=== PATIENT | male | born 1950 | race Caucasian/White ===

== ENCOUNTER 2017-12-08 17:37 | Emergency (ER) | payer OTHER ==
[~2017-12-08] VITALS: Ht 182.9 cm; Wt 83.9 kg
[2017-12-08 18:13] LABS: BASOPHILS ABSOLUTE AUTO 0.03 K/mm3 (0.00-0.23); BASOPHILS PERCENT AUTO 0 % (0-2); EOSINOPHILS ABSOLUTE AUTO 0.07 K/mm3 (0.00-0.68); EOSINOPHILS PERCENT AUTO 1 % (0-6); Hematocrit 42.9 % (37.0-53.0); Hemoglobin 14.4 g/dL (13.5-17.5); IMMATURE GRAN ABSOLUTE AUTO 0.04 K/mm3 (0.00-0.10); IMMATURE GRAN PERCENT AUTO 0 % (0-1); LYMPHOCYTES ABSOLUTE AUTO 1.94 K/mm3 (0.84-5.20); LYMPHOCYTES PERCENT AUTO 16 % (21-46); MONOCYTES ABSOLUTE AUTO 0.96 K/mm3 (0.16-1.47); MONOCYTES PERCENT AUTO 8 % (4-13); Mean Corpuscular HGB 30.3 pg (26.0-34.0); Mean Corpuscular HGB Conc 33.6 g/dL (31.5-36.5); Mean Corpuscular Volume 90 fL (80-100); Mean Platelet Volume 10.5 fL (9.1-12.4); NEUTROPHILS ABSOLUTE AUTO 9.39 K/mm3 (1.96-9.15); NEUTROPHILS PERCENT AUTO 76 % (41-73); Platelet Count 242 K/mm3 (150-400); RDW Coefficient Variation 12.4 % (11.7-14.2); RDW Standard Deviation 41.3 fL (35.1-46.3); Red Blood Cell Count 4.75 M/mm3 (4.30-5.90); White Blood Cell Count 12.43 K/mm3 (4.00-11.30)
[2017-12-08 18:33] LABS: Alanine Aminotransfer (ALT/SGP 21 U/L (12-78); Albumin, Blood 3.9 g/dL (3.4-5.0); Albumin/Globulin Ratio 1.1 (0.8-1.8); Alk Phos 81 U/L (50-136); Anion Gap 8 mmol/L (6-16); Aspartate Aminotrans (AST/SGOT 24 U/L (12-37); Bilirubin, Total 0.6 mg/dL (0.1-1.0); Blood Urea Nitrogen 11 mg/dL (8-24); Bun/Creatinine Ratio 20.9 (12.0-20.0); CO2, Blood 28 mmol/L (21-32); Chloride, Blood 93 mmol/L (98-108); Creatinine, Blood 0.53 mg/dL (0.60-1.20); Globulin, Blood 3.4 g/dL (2.2-4.0); Glomerular Filtration Rate >60 (60-); Glucose, Blood 91 mg/dL (70-99); Potassium, Blood 3.7 mmol/L (3.5-5.5); Sodium, Blood 129 mmol/L (136-145); Total Protein, Blood 7.3 g/dL (6.4-8.2); Troponin I <0.015 ng/mL (0.000-0.040)
[2017-12-08] MEDS ORDERED: HYDCHL12.5 PO (19:57)
[2017-12-08] MEDS ORDERED: LISI5 PO (19:58)
[2017-12-08] MEDS ORDERED: SIMV40 PO (19:58)
[2017-12-08] MEDS ORDERED: ATEN25 PO (19:58)
[2017-12-08] MEDS ORDERED: TAMS.4ER PO (19:59)
[2017-12-08] MEDS ORDERED: TRAZ50 PO (19:59)
[2017-12-08] MEDS ORDERED: Hydrocodone-Ap1 EA20 PO (20:00)
[2017-12-08] MEDS ORDERED: ALBU90OI INH (20:01)
[2017-12-08] MEDS ORDERED: ASPI81CH PO (20:02)
[2017-12-08] MEDS ORDERED: Hair, Skin & N1 EACH PO (20:02)
[2017-12-08] MEDS ORDERED: ERGO400 PO (20:02)
[2017-12-08] MEDS ORDERED: TIOT18 INH (20:02)
[2017-12-08] MEDS ORDERED: Augmentin 875-1 EACH PO (21:31)
[2017-12-08] MEDS ORDERED: Prednisone20 MG PO (21:31)
== END 2017-12-08 21:45 | disposition home or self-care (01) ==
LOC: ER 17:37
PROVIDERS: Emergency Medicine
DX: J44.1 Chronic obstructive pulmonary disease with (acute) exacerbation (principal); K04.7 Periapical abscess without sinus; F17.200 Nicotine dependence, unspecified, uncomplicated
CPT/HCPCS: 36415; 71046; 80053; 83880; 84484; 85025; 93005; 93010; 94640; 96365; 96375; 99284; J2930; J3475

== ENCOUNTER 2019-06-04 09:22 | Inpatient (IN) | payer OTHER, MEDICARE ==
[~2019-06-04] VITALS: Ht 182.9 cm; Wt 81.7 kg
[~2019-06-04 09:22] MED LIST: ACET325 PO; ALBU2.5V5 NEB; ALBU90OI INH; ASPI325 PO; ATEN25 PO; AZIT250 PO; Augmentin 875-1 EACH PO; BISA10S PR; BUDE6HFA INH; DILT60 PO; DOCU100 PO; ERGO400 PO; Florastor250 MG PO; HYDCHL12.5 PO; Hair, Skin & N1 EACH PO; Hydrocodone-Ap1 EA20 PO; LISI5 PO; MIRALAX17 GM PO; MIRT30 PO; ONDA4ODT PO; PRED20 PO; Prednisone20 MG PO; SIMV40 PO; TAMS.4ER PO; TIOT18 INH; TRAZ50 PO; XARELTO15 MG PO
[2019-06-04 09:42] LABS: BASOPHILS ABSOLUTE AUTO 0.05 K/mm3 (0.00-0.23); BASOPHILS PERCENT AUTO 1 % (0-2); EOSINOPHILS ABSOLUTE AUTO 0.18 K/mm3 (0.00-0.68); EOSINOPHILS PERCENT AUTO 3 % (0-6); Hematocrit 29.1 % (37.0-53.0); Hemoglobin 9.1 g/dL (13.5-17.5); IMMATURE GRAN ABSOLUTE AUTO 0.01 K/mm3 (0.00-0.10); IMMATURE GRAN PERCENT AUTO 0 % (0-1); LYMPHOCYTES ABSOLUTE AUTO 1.52 K/mm3 (0.84-5.20); LYMPHOCYTES PERCENT AUTO 23 % (21-46); MONOCYTES ABSOLUTE AUTO 0.72 K/mm3 (0.16-1.47); MONOCYTES PERCENT AUTO 11 % (4-13); Mean Corpuscular HGB 30.5 pg (26.0-34.0); Mean Corpuscular HGB Conc 31.3 g/dL (31.5-36.5); Mean Corpuscular Volume 98 fL (80-100); Mean Platelet Volume 10.2 fL (9.1-12.4); NEUTROPHILS ABSOLUTE AUTO 4.11 K/mm3 (1.96-9.15); NEUTROPHILS PERCENT AUTO 62 % (41-73); Platelet Count 336 K/mm3 (150-400); RDW Coefficient Variation 13.9 % (11.7-14.2); RDW Standard Deviation 49.4 fL (35.1-46.3); Red Blood Cell Count 2.98 M/mm3 (4.30-5.90); White Blood Cell Count 6.59 K/mm3 (4.00-11.30)
[2019-06-04] MEDS ORDERED: LACT PO (09:54)
[2019-06-04] MEDS ORDERED: SERT25 PO (09:56)
[2019-06-04 09:59] LABS: Alanine Aminotransfer (ALT/SGP 23 U/L (12-78); Albumin, Blood 3.8 g/dL (3.4-5.0); Albumin/Globulin Ratio 1.2 (0.8-1.8); Alk Phos 85 U/L (50-136); Anion Gap 5 mmol/L (6-16); Aspartate Aminotrans (AST/SGOT 21 U/L (12-37); Bilirubin, Total 0.4 mg/dL (0.1-1.0); Blood Urea Nitrogen 7 mg/dL (8-24); Bun/Creatinine Ratio 9.7 (12.0-20.0); CO2, Blood 35 mmol/L (21-32); Calcium, Blood 9.1 mg/dL (8.5-10.1); Chloride, Blood 99 mmol/L (98-108); Creatinine, Blood 0.73 mg/dL (0.60-1.20); Globulin, Blood 3.1 g/dL (2.2-4.0); Glomerular Filtration Rate >60 (60-); Glucose, Blood 74 mg/dL (70-99); Potassium, Blood 3.3 mmol/L (3.5-5.5); Sodium, Blood 139 mmol/L (136-145); Total Protein, Blood 6.9 g/dL (6.4-8.2)
--- NOTE | 2019-06-04 12:00 | NUR ---
PT ARRIVED TO ROOM 338 FROM ER VIA W/C. PT IS AMBULATORY AND INDEPENDENT WITH ADL'S IN ROOM. DENIES PAIN, HE IS SOB WITH EXERTION AND RESP IS AT BEDSIDE AT THIS TIME FOR TREATMENT. VITAL SIGNS OBTAINED AND PT ORIENTED TO ROOM AND CALL SYSTEM. CALL GUTIERREZ IN REACH. WILL MONITOR
[2019-06-04 15:51] LABS: Hematocrit 27.8 % (37.0-53.0); Hemoglobin 8.8 g/dL (13.5-17.5)
[2019-06-04 16:02] LABS: International Normalized Ratio 1.05; Prothrombin Time Results 11.1 Sec (9.7-11.5)
--- NOTE | 2019-06-05 04:51 | NUR ---
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
[2019-06-05 05:27] LABS: Hematocrit 24.8 % (37.0-53.0); Hemoglobin 7.8 g/dL (13.5-17.5)
[2019-06-05 17:27] LABS: Hematocrit 26.7 % (37.0-53.0); Hemoglobin 8.2 g/dL (13.5-17.5)
--- NOTE | 2019-06-05 18:31 | NUR ---
PT H2O/CHIPS AT 0700 THIS AM, NPO AT 1430 FOR PROCEDURE THIS EVENING WITH DR RUIZ. NO REPORTS OF PAIN/DISCOMFORT OR DARK STOOLS. NO ACUTE CHANGES NOTED THIS SHIFT, WILL CONTINUE TO MONITOR AND REPORT TO ONCOMING RN
--- NOTE | 2019-06-05 19:39 | NUR ---
TO ENDOSCOPY PER CART.
--- NOTE | 2019-06-05 19:58 | NUR ---
06/05/191957 Genesis Pedersen DR HERE TO PROVIDE ANESTHESIA CARE FOR THE PATIENT, PLEASE SEE DETAILED RECORD. History, Chart, Medications and Allergies reviewed before start of procedure. Patient confirms NPO status and agrees with scheduled surgery. MONITOR INTACT WITH CONTINUOUS PULSE OXIMETRY AND INTERMITTENT BP. O2 VIA N/C INTACT THROUGHOUT SEDATION/PROCEDURE & POM AT 10 L. Bite Block Placed.
--- NOTE | 2019-06-05 20:41 | NUR ---
CALL BACK TO NORMA ADAM RN, WILL GIVE BEDSIDE REPORT.
--- NOTE | 2019-06-05 22:15 | NUR ---
2049 PT RETURNED TO ROOM FROM ENDOSCOPY, ALERT AND ORIENTED X 4, DENIES PAIN, NAUSEA, PT GAVE VERBAL CONSENT TO DISCUSS CARE WITH DAUGHTER LINDA DALY TO THIS NURSE, UPDATE PROVIDED. 2199 PT ATE TWO CONTAINERS OF TAPIOCA PUDDING WITHOUT ISSUE, FEELS OK.
--- NOTE | 2019-06-06 04:29 | NUR ---
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
[2019-06-06 05:35] LABS: Hematocrit 25.9 % (37.0-53.0); Hemoglobin 8.3 g/dL (13.5-17.5); Mean Platelet Volume 10.1 fL (9.1-12.4); Platelet Count 337 K/mm3 (150-400); RDW Coefficient Variation 13.4 % (11.7-14.2); RDW Standard Deviation 46.5 fL (35.1-46.3); Red Blood Cell Count 2.77 M/mm3 (4.30-5.90); White Blood Cell Count 6.07 K/mm3 (4.00-11.30)
[2019-06-06 05:36] LABS: Mean Corpuscular Volume 94 fL (80-100)
[2019-06-06 06:05] LABS: Anion Gap 5 mmol/L (6-16); Blood Urea Nitrogen 6 mg/dL (8-24); Bun/Creatinine Ratio 8.7 (12.0-20.0); CO2, Blood 35 mmol/L (21-32); Calcium, Blood 8.8 mg/dL (8.5-10.1); Chloride, Blood 101 mmol/L (98-108); Creatinine, Blood 0.69 mg/dL (0.60-1.20); Glomerular Filtration Rate >60 (60-); Glucose, Blood 74 mg/dL (70-99); Potassium, Blood 3.4 mmol/L (3.5-5.5); Sodium, Blood 141 mmol/L (136-145)
[2019-06-06] MEDS ORDERED: ASPI81CH PO (10:02)
[2019-06-06] MEDS ORDERED: PANT40 PO (10:05)
--- NOTE | 2019-06-06 12:50 | NUR ---
DISCHARGE PATIENT DISCHARGED AT 1215 TODAY. IV REMOVED, ALL BELONGINGS SENT WITH PATIENT. DISCHARGE PACKET GIVEN TO PATIENT, NEW PROTONIX PRESCRIPTION EXPLAINED TO PT. PATIENT VERBALIZED UNDERSTANDING AND SIGNED DC FORM.
== END 2019-06-06 12:13 | disposition home or self-care (01) | DRG 378 ==
LOC: ER 09:22 → MEDS 11:41 → ENPENDDIS 06-06 10:35 → MEDS 06-06 12:13
PROVIDERS: Emergency Medicine; Internal Medicine; Internal Medicine Gastroenterology; Nurse Practitioner Acute Care; ADMIT Internal Medicine
PROC: 0DJ08ZZ Inspection of Upper Intestinal Tract, Via Natural or Artificial Opening Endoscopic (ICD-10-PCS; principal; 2019-06-05 19:45)
DX: K25.4 Chronic or unspecified gastric ulcer with hemorrhage (principal); D62 Acute posthemorrhagic anemia; J96.11 Chronic respiratory failure with hypoxia; G47.33 Obstructive sleep apnea (adult) (pediatric); Z79.01 Long term (current) use of anticoagulants; J44.9 Chronic obstructive pulmonary disease, unspecified; I11.0 Hypertensive heart disease with heart failure; I50.9 Heart failure, unspecified; I89.0 Lymphedema, not elsewhere classified; I48.0 Paroxysmal atrial fibrillation; N40.0 Benign prostatic hyperplasia without lower urinary tract symptoms; Z99.81 Dependence on supplemental oxygen; F17.210 Nicotine dependence, cigarettes, uncomplicated
CPT/HCPCS: 36415; 80048; 80053; 83735; 84132; 85014; 85018; 85025; 85027; 85610; 86850; 86900; 86901; 88305; 88342; 93005; 93010; 94640; 94760; 96374; 99285-25; C9113; J2704; J7120

== ENCOUNTER 2021-06-22 08:20 | Day surgery (SDC) | payer OTHER ==
[~2021-06-22 08:20] MED LIST changes: +ASPI81CH PO; +Atarax10 MG PO; +HYDR10 PO; +IPRAT-ALBUT 0.5-3 ML IH; +LACT PO; +LISI5; +PANT40 PO; +SERT25 PO; +ZOCOR20 MG
[2021-06-22] MEDS ORDERED: ELIQUIS2.5 MG PO (09:14)
--- NOTE | 2021-06-22 09:42 | NUR ---
PT TOLERATES LINQ IMPLANT WITH NO DIFFICULTIES. STERILE TECHNIQUE USED TO PLACE DEVICE INTO 4TH INTERCOSTAL SPACE BY PROVIDER. DISCHARGE INSTRUCTIONS PROVIDED WITH FOLLOW UP APT AND WOUND CARE INSTRUCTIONS.
--- NOTE | 2021-06-22 09:59 | NUR ---
NO ACUTE DISTRESS NOTED AT TIME OF DISCHARGE. TAKEN OUT TO PRIVATE VEHICLE VIA W/C. ENCOURAGE TO FOLLOW UP SCHEDULED.
== END 2021-06-22 23:12 | disposition home or self-care (01) ==
LOC: MHTC 08:20
PROC: 0JH602Z Insertion of Monitoring Device into Chest Subcutaneous Tissue and Fascia, Open Approach (ICD-10-PCS; principal; 2021-06-22)
DX: R55 Syncope and collapse (principal); I48.0 Paroxysmal atrial fibrillation; I10 Essential (primary) hypertension; J44.9 Chronic obstructive pulmonary disease, unspecified; E78.5 Hyperlipidemia, unspecified; Z79.899 Other long term (current) drug therapy; Z79.51 Long term (current) use of inhaled steroids
CPT/HCPCS: 33285; C1764

== ENCOUNTER 2022-01-04 12:49 | Day surgery (SDC) | payer OTHER ==
[~2022-01-04] VITALS: Ht 182.9 cm; Wt 83.4 kg
[~2022-01-04 12:49] MED LIST changes: +ELIQUIS2.5 MG PO
--- NOTE | 2022-01-04 13:15 | NUR ---
01/04/22 1315 Shayy Bey CALL LIGHT WITHIN REACH. TETRACAINE AT 1306 [facility] 1301
== END 2022-01-04 14:30 | disposition home or self-care (01) ==
LOC: ORSCSDS 12:49
PROVIDERS: Ophthalmology
PROC: 08RK3JZ Replacement of Left Lens with Synthetic Substitute, Percutaneous Approach (ICD-10-PCS; principal; 2022-01-04 14:00)
DX: H25.13 Age-related nuclear cataract, bilateral (principal); H21.81 Floppy iris syndrome; F41.9 Anxiety disorder, unspecified; J44.9 Chronic obstructive pulmonary disease, unspecified; I10 Essential (primary) hypertension; E78.5 Hyperlipidemia, unspecified; G47.33 Obstructive sleep apnea (adult) (pediatric); I63.9 Cerebral infarction, unspecified; Z87.891 Personal history of nicotine dependence; Z79.01 Long term (current) use of anticoagulants; Z79.899 Other long term (current) drug therapy
CPT/HCPCS: J2001; J2250; J3010; J3301; J7040; V2632

== ENCOUNTER 2022-01-23 12:19 | Day surgery (SDC) | payer OTHER ==
[~2022-01-23] VITALS: Ht 182.9 cm; Wt 83.4 kg
== END 2022-01-23 15:03 | disposition home or self-care (01) ==
LOC: ORSCSDS 12:19
PROVIDERS: Ophthalmology
PROC: 08RJ3JZ Replacement of Right Lens with Synthetic Substitute, Percutaneous Approach (ICD-10-PCS; principal; 2022-01-23 14:00)
DX: H25.11 Age-related nuclear cataract, right eye (principal); H21.81 Floppy iris syndrome; Z87.891 Personal history of nicotine dependence; J44.9 Chronic obstructive pulmonary disease, unspecified; I10 Essential (primary) hypertension; E78.5 Hyperlipidemia, unspecified; G47.33 Obstructive sleep apnea (adult) (pediatric); I48.0 Paroxysmal atrial fibrillation; Z79.01 Long term (current) use of anticoagulants; Z79.899 Other long term (current) drug therapy
CPT/HCPCS: J2001; J2250; J3010; J3301; J7040; V2632

== ENCOUNTER 2024-05-30 19:05 | Inpatient (IN) | payer OTHER ==
[~2024-05-30] VITALS: Ht 182.9 cm; Wt 94.5 kg
[~2024-05-30 19:05] MED LIST changes: -HYDCHL12.5 PO; +HYDCHL25 PO; -SERT25 PO; +SERT50 PO; -ZOCOR20 MG; +ZOCOR20 MG PO
[2024-05-30 19:35] LABS: BASOPHILS ABSOLUTE AUTO 0.03 K/mm3 (0.00-0.23); BASOPHILS PERCENT AUTO 0 % (0-2); EOSINOPHILS ABSOLUTE AUTO 0.27 K/mm3 (0.00-0.68); EOSINOPHILS PERCENT AUTO 2 % (0-6); Hematocrit 41.3 % (37.0-53.0); IMMATURE GRAN ABSOLUTE AUTO 0.05 K/mm3 (0.00-0.10); IMMATURE GRAN PERCENT AUTO 0 % (0-1); LYMPHOCYTES ABSOLUTE AUTO 3.12 K/mm3 (0.84-5.20); LYMPHOCYTES PERCENT AUTO 24 % (21-46); MONOCYTES ABSOLUTE AUTO 0.98 K/mm3 (0.16-1.47); MONOCYTES PERCENT AUTO 8 % (4-13); Mean Corpuscular HGB Conc 31.5 g/dL (31.5-36.5); Mean Corpuscular Volume 92 fL (80-100); Mean Platelet Volume 9.9 fL (9.1-12.4); NEUTROPHILS ABSOLUTE AUTO 8.68 K/mm3 (1.96-9.15); NEUTROPHILS PERCENT AUTO 66 % (41-73); Platelet Count 346 K/mm3 (150-400); RDW Coefficient Variation 12.2 % (11.7-14.2); RDW Standard Deviation 41.4 fL (35.1-46.3); Red Blood Cell Count 4.49 M/mm3 (4.30-5.90); White Blood Cell Count 13.13 K/mm3 (4.00-11.30)
[2024-05-30] MEDS ORDERED: MethylPREDNISolone Sod Succ 125 MG Vial IV ONE (19:35)
[2024-05-30] MEDS ORDERED: Ipratropium Bromide INH 0.02% 0.5 mg/2.5ML Vial INH SCH (19:40)
[2024-05-30] MEDS ORDERED: Diltiazem HCl 5 MG / ML 5ML Vial IV ONE ×2 (19:40→22:00)
[2024-05-30] MEDS ORDERED: Albuterol 2.5 MG/3 ML VIAL INH SCH (19:40)
[2024-05-30 19:50] LABS: PCO2 Venous 71.2 mmHg (38-42); pH Blood Venous 7.42 (7.34-7.37)
[2024-05-30 19:51] LABS: Bicarbonate Venous 40.7 mmol/L (24.0-30.0)
[2024-05-30 20:01] LABS: Alanine Aminotransfer (ALT/SGP 34 U/L (12-78); Albumin, Blood 3.2 g/dL (3.4-5.0); Albumin/Globulin Ratio 0.9 (0.8-1.8); Alk Phos 91 U/L (50-136); Anion Gap 7 mmol/L (3-11); Aspartate Aminotrans (AST/SGOT 24 U/L (12-37); Bilirubin, Total 0.2 mg/dL (0.1-1.0); Blood Urea Nitrogen 24 mg/dL (8-24); Bun/Creatinine Ratio 30.8 (12.0-20.0); CO2, Blood 43 mmol/L (21-32); Chloride, Blood 92 mmol/L (98-108); Creatinine, Blood 0.78 mg/dL (0.60-1.20); Globulin, Blood 3.6 g/dL (2.2-4.0); Glomerular Filtration Rate 95 (60-); Glucose, Blood 107 mg/dL (70-99); Potassium, Blood 3.5 mmol/L (3.5-5.5); Sodium, Blood 138 mmol/L (136-145); Total Protein, Blood 6.8 g/dL (6.4-8.2)
[2024-05-30 20:19] LABS: Free Thyroxine 0.93 ng/dL (0.70-1.60); Magnesium, Blood 2.2 mg/dL (1.6-2.4)
[2024-05-30 20:21] LABS: Thyroid Stimulating Hormone 4.53 uIU/mL (0.360-4.800)
[2024-05-30 20:31] LABS: Influenza A, PCR NEGATIVE (NEGATIVE); Influenza B, PCR NEGATIVE (NEGATIVE); Resp Syncytial Virus, PCR NEGATIVE (NEGATIVE); SARS-Cov-2 (COVID-19) PCR, MMC NEGATIVE (NEGATIVE)
[2024-05-30] MEDS ORDERED: levalbuterol HCL 1.25 MG/3 ML VIAL INH ONE ×3 (22:00→22:35)
[2024-05-30 22:21] LABS: PCO2 Venous 62.8 mmHg (38-42); pH Blood Venous 7.44 (7.34-7.37)
[2024-05-30] MEDS ORDERED: Azithromycin 500 MG in NS 250 ML IV ONE (23:15)
[2024-05-31] MEDS ORDERED: FLU VACC TS2024-25(6MOS UP)/PF 45 MCG/0.5 ML SYRINGE IM SCH (00:25)
[2024-05-31] MEDS ORDERED: Ipratropium/Albuterol SulF 2.5-0.5MG/3 ML Amp INH PRN (00:25)
[2024-05-31] MEDS ORDERED: Ondansetron HCl 2 MG / ML 2ML Vial IV PRN (00:25)
[2024-05-31] MEDS ORDERED: Potassium Chl 20MEQ/Water100ML 100 ML IV SCH (00:40)
[2024-05-31] MEDS ORDERED: NS 1,000 ML IV SCH (01:35)
[2024-05-31 03:00] VITALS: BP 96/68
[2024-05-31] MEDS ORDERED: MethylPREDNISolone Sod Succ 125 MG Vial IV SCH (06:00)
[2024-05-31 06:07] LABS: BASOPHILS ABSOLUTE AUTO 0.01 K/mm3 (0.00-0.23); BASOPHILS PERCENT AUTO 0 % (0-2); EOSINOPHILS PERCENT AUTO 0 % (0-6); Hematocrit 36.7 % (37.0-53.0); Hemoglobin 11.6 g/dL (13.5-17.5); IMMATURE GRAN ABSOLUTE AUTO 0.09 K/mm3 (0.00-0.10); IMMATURE GRAN PERCENT AUTO 1 % (0-1); LYMPHOCYTES ABSOLUTE AUTO 0.68 K/mm3 (0.84-5.20); LYMPHOCYTES PERCENT AUTO 6 % (21-46); MONOCYTES ABSOLUTE AUTO 0.07 K/mm3 (0.16-1.47); MONOCYTES PERCENT AUTO 1 % (4-13); Mean Corpuscular HGB 28.7 pg (26.0-34.0); Mean Corpuscular HGB Conc 31.6 g/dL (31.5-36.5); Mean Corpuscular Volume 91 fL (80-100); Mean Platelet Volume 9.7 fL (9.1-12.4); NEUTROPHILS ABSOLUTE AUTO 9.71 K/mm3 (1.96-9.15); NEUTROPHILS PERCENT AUTO 92 % (41-73); Platelet Count 290 K/mm3 (150-400); RDW Coefficient Variation 12.3 % (11.7-14.2); RDW Standard Deviation 40.9 fL (35.1-46.3); Red Blood Cell Count 4.04 M/mm3 (4.30-5.90); White Blood Cell Count 10.56 K/mm3 (4.00-11.30)
[2024-05-31 06:28] LABS: Albumin, Blood 2.9 g/dL (3.4-5.0); Bilirubin, Total 0.3 mg/dL (0.1-1.0); Bun/Creatinine Ratio 34.3 (12.0-20.0); Calcium, Blood 8.7 mg/dL (8.5-10.1); Creatinine, Blood 0.67 mg/dL (0.60-1.20); Potassium, Blood 4.6 mmol/L (3.5-5.5); Total Protein, Blood 5.9 g/dL (6.4-8.2)
[2024-05-31] MEDS ORDERED: Albuterol 2.5 MG/3 ML VIAL INH PRN (06:40)
[2024-05-31] MEDS ORDERED: Mometasone/Formoterol MDI 200/5 mcg 13 GM INH SCH (07:15)
[2024-05-31] MEDS ORDERED: Tiotropium Bromide 2.5 MCG/ACT MIST INHAL (10 ACT/4 GM) INH SCH (07:20)
[2024-05-31 07:29] VITALS: BP 101/69
[2024-05-31] MEDS ORDERED: Polyethylene Glycol 3350 17 gm PO PRN (08:00)
[2024-05-31] MEDS ORDERED: Acetaminophen 500 MG Tab PO PRN (08:05)
[2024-05-31] MEDS ORDERED: Metoprolol Succinate 25 MG TABCR PO ONE ×2 (08:25→15:00)
[2024-05-31] MEDS ORDERED: Lactobacil 2-S.Thermo-Bifido 1 1 Cap PO SCH (09:00)
[2024-05-31] MEDS ORDERED: Sertraline HCl 50 MG Tab PO SCH (09:00)
[2024-05-31] MEDS ORDERED: Enoxaparin 40 MG/0.4 ML SYR SC SCH (09:00)
[2024-05-31] MEDS ORDERED: HydroCHLOROthiazide 25 mg Tab PO SCH (09:00)
[2024-05-31] MEDS ORDERED: Apixaban 5 MG Tab PO SCH (09:00)
[2024-05-31] MEDS ORDERED: Tamsulosin HCl 0.4 MG Cap PO SCH (09:00)
[2024-05-31 11:09] VITALS: BP 118/84
[2024-05-31 15:24] VITALS: BP 104/67
--- NOTE | 2024-05-31 17:42 | NUR ---
SHIFT SUMMARY: PT ALERT AND ORIENTED X4, ABLE TO FOLLOW COMMANDS AND MAKE NEEDS KNOWN. STRENGTH EQUAL BILATERALLY. BP STABLE. HR REMAINS AFIB 90'S-110'S. AFEBRILE. SPO2 >94% ON 3L NC. LUNG SOUNDS COARSE, WITH NON PRODUCTIVE COUGH. PT STATES IMPROVMENT FROM ADMISSION. PULSES STRONG AND EQUAL THROUGHOUT. ABD SOFT NON TENDER, BOWEL SOUNDS +. DILT REMAINS ON STANDBY. PT ABLE TO TRANSFER WITH ONE PERSON ASSIST. ABLE TO USE URINAL AT BEDSIDE. CURRENTLY SITTING IN RECLINER EATING DINNER. CALL LIGHT IN REACH, WILL REPORT TO ONCOMING RN.
[2024-05-31 20:08] VITALS: BP 101/72
[2024-05-31] MEDS ORDERED: Azithromycin 500 MG in NS 250 ML IV SCH (21:00)
[2024-05-31] MEDS ORDERED: Mirtazapine 30 MG Tab PO SCH (21:00)
[2024-05-31] MEDS ORDERED: Docusate Sodium/Senna 1 Tab PO SCH (21:00)
[2024-06-01] VITALS (13 sets, daily range): BP systolic 11–140; BP diastolic 52–114
--- NOTE | 2024-06-01 06:19 | NUR ---
PT REMAINS STABLE THROUGHOUT THE SHIFT. VITAL SIGNS REMAIN WNL. PT DOES HAVE EXERTIONAL TACHYCARDIA AND DYSPNEA BUT RECOVERS QUICKLY AT REST. PT 1 ASSIST FROM CHAIR TO BED W/O PROBLEM. PT TOLERATING IV ABX. PT AOX4, USES CALL LIGHT APPROPRIATELY. PT DIMINISHED LUNG SOUNDS THROUGHOUT UNCHANGED FROM BEGINNING OF SHIFT. PT HR DOES REMAIN IN AFIB IN THE 90s-100s. NO C/O INCREASED SOB AT REST, NO C/O OF CHEST PAIN THROUGHOUT THE SHIFT.
--- NOTE | 2024-06-01 08:15 | NUR ---
INITIAL ASSESSMENT: Patient is resting with his eyes closed on his right side. He wakes easily with verbal stimuli. He is oriented x4. He reports 3/10 lower back pain, he states this is chronic and he takes hydrocodone for this at home. He is in A-Fib in the 90s at rest and his heart rate increases with activity into the 140s. LS DIM T/O, he is on his baseline oxygen requirements at 3L via NC. He is slightly tachypnec at rest he is able to get out 3-4 words at a time. BT+. Patient is able to use the urinal to void. PPP. He states he uses a motorized wheelchair at home for activity due to WOB. VSS. AM meds given with a sip of water. He denies other needs at this time. Call light in reach.
[2024-06-01] MEDS ORDERED: Metoprolol Succinate 25 MG TABCR PO SCH (09:00)
[2024-06-01] MEDS ORDERED: Digoxin 0.25 MG Tab PO ONE ×2 (13:25→20:00)
[2024-06-01] MEDS ORDERED: Furosemide 10 MG / ML 2ML Vial IV STA (14:46)
--- NOTE | 2024-06-01 15:15 | NUR ---
Update: This RN was called to the room for patients HR increasing 160s-180s. The patient was very SOB and tachypnec after having a coughing episode. His LS were very diminished. He just had a breathing TX, he states this did not help. Oxygen satruations remained in the high 80s. Call placed to MD, see new orders.
--- NOTE | 2024-06-01 18:31 | NUR ---
Summary: Patient has been alert and oriented x4, T/O the shift. He has minimal C/O pain in his lower back. He has been in A-Fib for the majority of the shift his heart rate increased in the afternoon, he was given Metoprolol this am, dig loaded this afternoon Cardizem gtt was restarted briefly around 1500 and ran for about an hour and a half, his heart rate started to sustain in the 80s-90s and MAP was at 60 so the drip was stopped. LS DIM T/O, his saturations were stable on his home dose of oxygen 3l, he was given a dose of Lasix and a chest X-Ray after a coughing SOB episode. BT+, he has not had a BM this shift. he has been voiding in the urinal. No other acute changes this shift, will report to oncoming RN.
[2024-06-02 00:10] VITALS: BP 110/76
[2024-06-02 04:16] LABS: BASOPHILS ABSOLUTE AUTO 0.02 K/mm3 (0.00-0.23); BASOPHILS PERCENT AUTO 0 % (0-2); EOSINOPHILS PERCENT AUTO 0 % (0-6); Hematocrit 37.6 % (37.0-53.0); Hemoglobin 11.9 g/dL (13.5-17.5); IMMATURE GRAN ABSOLUTE AUTO 0.08 K/mm3 (0.00-0.10); IMMATURE GRAN PERCENT AUTO 1 % (0-1); LYMPHOCYTES ABSOLUTE AUTO 0.58 K/mm3 (0.84-5.20); LYMPHOCYTES PERCENT AUTO 3 % (21-46); MONOCYTES ABSOLUTE AUTO 0.32 K/mm3 (0.16-1.47); MONOCYTES PERCENT AUTO 2 % (4-13); Mean Corpuscular HGB Conc 31.6 g/dL (31.5-36.5); Mean Corpuscular Volume 92 fL (80-100); Mean Platelet Volume 10.1 fL (9.1-12.4); NEUTROPHILS ABSOLUTE AUTO 15.89 K/mm3 (1.96-9.15); NEUTROPHILS PERCENT AUTO 94 % (41-73); Platelet Count 335 K/mm3 (150-400); RDW Coefficient Variation 12.9 % (11.7-14.2); RDW Standard Deviation 42.8 fL (35.1-46.3); White Blood Cell Count 16.89 K/mm3 (4.00-11.30)
[2024-06-02 04:31] VITALS: BP 111/73
[2024-06-02 04:37] LABS: Albumin, Blood 2.7 g/dL (3.4-5.0); Albumin/Globulin Ratio 0.9 (0.8-1.8); Bilirubin, Total 0.3 mg/dL (0.1-1.0); Bun/Creatinine Ratio 37.4 (12.0-20.0); Calcium, Blood 8.8 mg/dL (8.5-10.1); Creatinine, Blood 0.67 mg/dL (0.60-1.20); Potassium, Blood 4.1 mmol/L (3.5-5.5); Total Protein, Blood 5.7 g/dL (6.4-8.2)
--- NOTE | 2024-06-02 06:29 | NUR ---
PT STABLE THROUGHOUT THE SHIFT BUT DOES APPEAR WEAKEN THAN PREVIOUS SHIFT. PT HAS NO C/O CP OR INCREASED DYSPNEA. PT TOLERATING ALL MEDICATIONS WELL. PT REMAINS ON HOME DOSE OF O2 AT 3L AND SATING WELL WHILE BREATHING THROUGH NOSE. PT HAD ONE EPISODE OF DECREASED O2 SATS AND WAS BREATHING THROUGH MOUTH. WAKING PT UP IMMEDIATELY IMPROVED O2 SATURATION. PT STATS HE USES A "CHIN STRAP" AT HOME TO REMEDY THIS ISSUE. OTHERWISE ALL VITAL SIGNS REMAINED WNL. PT REMAINS AOX4 BUT APPEARS WEAKER IN MOBILITY AND REMAINED IN BED THROUGHOUT THE NIGHT.
[2024-06-02 08:11] VITALS: BP 125/72
[2024-06-02] MEDS ORDERED: Digoxin 0.25 MG Tab PO SCH (09:00)
[2024-06-02] MEDS ORDERED: Furosemide 10 MG/ML 4ML Vial IV ONE (09:20)
[2024-06-02] MEDS ORDERED: Flonase 0.05% N16 GM (09:48)
[2024-06-02] MEDS ORDERED: Norco 10-325 T1 EACH PO (09:49)
[2024-06-02] MEDS ORDERED: Atarax10 MG PO (09:54)
[2024-06-02] MEDS ORDERED: LEVALBUTER1.25 MG/01 INH (09:55)
[2024-06-02] MEDS ORDERED: LEVALBUTEROL TA15 G1 INH (09:56)
[2024-06-02] MEDS ORDERED: METO25ER PO (09:57)
[2024-06-02] MEDS ORDERED: NARCAN4 M1 (09:58)
[2024-06-02 11:13] VITALS: BP 114/75
[2024-06-02] MEDS ORDERED: Morphine Sulfate 15 MG TABCR PO PRN (11:20)
[2024-06-02] MEDS ORDERED: Morphine Sulfate 10 MG/ML 1MLSYR INH PRN (11:20)
[2024-06-02 15:29] VITALS: BP 126/79
--- NOTE | 2024-06-02 18:08 | NUR ---
END OF SHIFT NOTE: PT A/OX4, ABLE TO CALL APPROPRIATELY & COMMUNICATE NEEDS W/ STAFF. HR 90-110'S TODAY W/ NONSUSTAINED INCREASED UP TO 170-180'S. SBP 110-120'S, MAP >65. PT DENIES CHEST PAIN ASIDE FROM DURING COUGHING EPISODES. SPO2 >90% ON 3L VIA NC, REPORTEDLY PT'S BASELINE O2. INCREASED RR NOTED, PT ABLE TO SPEAK IN 1-[address] COMPLET[address]. PULMONOLOGY CONSULT TODAY, PT STARTED ON MORPHINE FOR SOB/AIR HUNGER. PT ALSO MET W/ PALLIATIVE CARE, DECISION MADE TO CHANGE CODE STATUS TO DNR/DNI. PT'S DAUGHTER CALLED & IS AGREEABLE TO PLAN OF CARE. PT ABLE TO VOID IN URINAL INDEPENDENTLY. BED BATH COMPLETED THIS SHIFT, UP TO CHAIR FOR DINNER W/ 1P ASSIST. NO OTHER NEEDS AT THIS TIME. CALL LIGHT IN REACH.
[2024-06-02 20:11] VITALS: BP 123/62
[2024-06-02] MEDS ORDERED: Apixaban 5 MG Tab PO SCH (21:00)
[2024-06-02] MEDS ORDERED: Metoprolol Succinate 25 MG TABCR PO SCH (21:00)
[2024-06-03 00:14] VITALS: BP 122/95
[2024-06-03 04:04] VITALS: BP 113/78
[2024-06-03 04:28] LABS: BASOPHILS ABSOLUTE AUTO 0.02 K/mm3 (0.00-0.23); BASOPHILS PERCENT AUTO 0 % (0-2); EOSINOPHILS PERCENT AUTO 0 % (0-6); Hematocrit 39.8 % (37.0-53.0); Hemoglobin 12.2 g/dL (13.5-17.5); IMMATURE GRAN ABSOLUTE AUTO 0.13 K/mm3 (0.00-0.10); IMMATURE GRAN PERCENT AUTO 1 % (0-1); LYMPHOCYTES ABSOLUTE AUTO 0.62 K/mm3 (0.84-5.20); LYMPHOCYTES PERCENT AUTO 4 % (21-46); MONOCYTES ABSOLUTE AUTO 0.32 K/mm3 (0.16-1.47); MONOCYTES PERCENT AUTO 2 % (4-13); Mean Corpuscular HGB 28.4 pg (26.0-34.0); Mean Corpuscular HGB Conc 30.7 g/dL (31.5-36.5); Mean Corpuscular Volume 93 fL (80-100); Mean Platelet Volume 10.3 fL (9.1-12.4); NEUTROPHILS ABSOLUTE AUTO 13.94 K/mm3 (1.96-9.15); NEUTROPHILS PERCENT AUTO 93 % (41-73); Platelet Count 336 K/mm3 (150-400); RDW Standard Deviation 43.9 fL (35.1-46.3); White Blood Cell Count 15.03 K/mm3 (4.00-11.30)
[2024-06-03 04:52] LABS: Albumin, Blood 2.7 g/dL (3.4-5.0); Bilirubin, Total 0.3 mg/dL (0.1-1.0); Bun/Creatinine Ratio 44.3 (12.0-20.0); Calcium, Blood 8.6 mg/dL (8.5-10.1); Creatinine, Blood 0.56 mg/dL (0.60-1.20); Globulin, Blood 2.7 g/dL (2.2-4.0); Potassium, Blood 4.3 mmol/L (3.5-5.5); Total Protein, Blood 5.4 g/dL (6.4-8.2)
--- NOTE | 2024-06-03 06:33 | NUR ---
PT REMAINED STABLE THROUGHOUT THE SHIFT. PT RECEIVED NEBULIZED MORPHINE X1 AND THEN TRANSFERRED FROM CHAIR TO TO BED WITH 1 ASSIST. PT DOES CONTINUE TO HAVE EXERTIONAL TACHYCARDIA AND DYSPNEA AND CONTINUES TO RECOVER WELL AT REST. PT REMAINES AOX4, CALM, COOPERATIVE. PT ABLE TO USE CALL LIGHT APPROPRIATELY. PT DOSE APPEAR IMPROVED WITH MOBILITY AND GENERAL APPEARANCE TO PREVIOUS SHIFT. PT CONTINUES ON HOME DOSE OF O2 AT 3L AND TOLERATING WELL. PT REMAINS IN A.FIB 80s-100s. NO C/O CP AT REST OR EXERTION. NO C/O INCREASED DYSPNEA AT REST.
[2024-06-03 07:56] VITALS: BP 129/80
[2024-06-03 12:30] VITALS: BP 102/54
[2024-06-03 16:10] VITALS: BP 118/69
[2024-06-03 19:29] VITALS: BP 114/74
--- NOTE | 2024-06-03 19:32 | NUR ---
SHIFT SUMMARY: NEURO: AXOX4. MAKES NEEDS KNOWN TO STAFF. FOLLOWS COMMANDS. NO ACUTE NEURO CHANGES THIS SHIFT, CARDIAC: DENIES ANY CP, TIGHTNESS. REPORTS SOB. REMAINS IN AFIB THROUGOUT SHIFT. RESP: ON 3L NC WHICH IS BASELINE FOR HIM. PT HAS COUGHED UP A LITTLE BIT OF PHLEGM THROUGHOUT THIS SHIFT AFTER USING THE FLUTTER VALVE AND HAS HAD SEVERAL BREATHING TX WITH NEBULIZED MORPHINE. REPORTS RELIEF. GI/GI: USES URINAL AT BEDSIDE. CONTINENT. NO SIGNIFICANT EVENTS HAPPENED DURING THIS SHIFT. REPORT TO SHIPPING SUPPORT RN TO ASSUME CARE OF PT.
--- NOTE | 2024-06-03 20:56 | NUR ---
ASSUMPTION OF CARE/ASSESSMENT: ASSUMED CARE OF PT AT 1900; BEDSIDE REPORT RECIEVED FROM JONAS MARCH. PT A&O X 4, PLEASANT AND COOPERATIVE WITH CARE. PT CURRENTLY ON NC @ 3LPM, SPO2 92< AND DENIES SOB AT THIS TIME. AFIB ON MONITOR, BP STABLE AND DENIES CHEST PAIN/PRESSURE AT THIS TIME. ABD ROUND, SOFT AND NON-TENDER; TOLERATING PO INTAKE. USING URINAL INDEPENDENTLY IN RECLINER. WHEELCHAIR AT BASELINE; PIVOT TRANSFERS TO CHAIR/BED AND BSC. PIV X 3 THAT ARE ALL SALINE LOCKED. PT UP IN RECLINER AT THIS TIME, CALL LIGHT IN REACH.
[2024-06-04] VITALS (7 sets, daily range): BP systolic 94–133; BP diastolic 55–88
[2024-06-04 04:11] LABS: BASOPHILS ABSOLUTE AUTO 0.02 K/mm3 (0.00-0.23); BASOPHILS PERCENT AUTO 0 % (0-2); EOSINOPHILS PERCENT AUTO 0 % (0-6); Hematocrit 40.4 % (37.0-53.0); Hemoglobin 12.6 g/dL (13.5-17.5); IMMATURE GRAN ABSOLUTE AUTO 0.16 K/mm3 (0.00-0.10); IMMATURE GRAN PERCENT AUTO 1 % (0-1); LYMPHOCYTES ABSOLUTE AUTO 0.52 K/mm3 (0.84-5.20); LYMPHOCYTES PERCENT AUTO 4 % (21-46); MONOCYTES ABSOLUTE AUTO 0.37 K/mm3 (0.16-1.47); MONOCYTES PERCENT AUTO 3 % (4-13); Mean Corpuscular HGB 28.7 pg (26.0-34.0); Mean Corpuscular HGB Conc 31.2 g/dL (31.5-36.5); Mean Corpuscular Volume 92 fL (80-100); Mean Platelet Volume 10.1 fL (9.1-12.4); NEUTROPHILS ABSOLUTE AUTO 10.97 K/mm3 (1.96-9.15); NEUTROPHILS PERCENT AUTO 91 % (41-73); Platelet Count 334 K/mm3 (150-400); RDW Coefficient Variation 12.7 % (11.7-14.2); RDW Standard Deviation 43.3 fL (35.1-46.3); Red Blood Cell Count 4.39 M/mm3 (4.30-5.90); White Blood Cell Count 12.04 K/mm3 (4.00-11.30)
[2024-06-04 04:30] LABS: Albumin, Blood 2.7 g/dL (3.4-5.0); Bilirubin, Total 0.4 mg/dL (0.1-1.0); Bun/Creatinine Ratio 47.3 (12.0-20.0); Creatinine, Blood 0.63 mg/dL (0.60-1.20); Globulin, Blood 2.7 g/dL (2.2-4.0); Magnesium, Blood 2.8 mg/dL (1.6-2.4); Potassium, Blood 4.4 mmol/L (3.5-5.5); Total Protein, Blood 5.4 g/dL (6.4-8.2)
--- NOTE | 2024-06-04 05:32 | NUR ---
SHIFT SUMMARY: NO ACUTE CHANGE OVERNIGHT; VSS THROUGHOUT THE SHIFT. PT CONTINUES ON NC @ 3LPM. USED URINAL AT BEDSIDE INDEPENDENTLY WITH APPROX. 400 ML URINE OUTPUT. PT SLEPT FOR MAJORITY OF THE NIGHT. BED LOWERED, CALL LIGHT IN REACH.
[2024-06-04] MEDS ORDERED: MethylPREDNISolone Sod Succ 125 MG Vial IV SCH ×2 (09:00→18:00)
[2024-06-04] MEDS ORDERED: CefTRIAXone Sodium 2,000 MG in NS 100 ML IV SCH (09:15)
[2024-06-04] MEDS ORDERED: Morphine Sulfate 20 MG/1ML 1 ML Oral Syringe SL PRN (12:15)
--- NOTE | 2024-06-04 12:15 | NUR ---
Met with patient a few days ago to discuss hospice, palliative care and code status. At that time, he was interested in discussing hospice and code status, but not ready to make any changes. However, he then met with document control supervisor Dr. Rutherford to discuss code status and palliation for end stage emphysema. The patient was on-board with this, and changed his code status to DNR. He is now receiving prn morphine for air hunger, and being followed by Palliative Care for symptom management. Pt's daughter Cynthia doesn't live locally, but has remained involved in his plan of care. She states the patient has always been fiercly independent, and is so short of breath, he has to use an electric scooter for all activity. Even using a urinal to void causes him to need recovery time. He desats into the 80's with any movement or activity. Requested [facility] Palliative Care follow pt upon d/c from hospital, and offer support. Pt and daughter approve of this plan.
--- NOTE | 2024-06-04 13:39 | NUR ---
MED REVIEW Reviewed meds with Dr. Espinoza, specifically morphine doses. Due to pt's ongoing, chronic emphysema, changed MS Contin to scheduled BID, d/c'd morphine nebulizer, and added roxanol 10mg SL every 8 hours as needed for breakthrough air hunger. Bedside RN updated.
--- NOTE | 2024-06-04 19:31 | NUR ---
SHIFT SUMMARY NEURO: PT A&OX4. FOLLOWS COMMANDS AND MAKES NEEDS KNOWN TO STAFF. NO ACUTE NEURO CHANGES THIS SHIFT CARDIAC: PT REMAINS IN AFIB. DENIES ANY CP, TIGHTNESS OR PRESSURE. PT STATES THAT HIS LUNGS FEEL CONGESTED. REMAINS ON TELE. RESP: PT REPORTS SOB MOST OF THE DAY. SOB WITH EXERTION. PT IS ON 3L NC WHICH IS BASELINE FOR. NEBULIZED MORPHINE WAS DC'D AND CHANGED TO SL ROXANOL FOR AIR HUGER. PT RECIEVED THIS EVENING AND REPORTED RELIEF. GI/: PT HAS BEEN USING URINAL AT BEDSIDE. ЕКАТЕРИНА FROM PALIATIVE CARE CONSULTED WITH CARE TEAM ABOUT THE PLAN OF CARE FOR PT. PT DOES NOT WANT TO GO ON HOSPICE OR COMFORT CARE AT THIS TIME. PLAN IT TO DC TO HOME WITH HOME HEALTH WHEN READY AND TO FOLLOW UP WITH PALIATIVE CARE AT THE [place] TO HELP MANAGE MEDS. NO ACUTE EVENTS OR CHANGES HAVE HAPPENED DURING THIS SHIFT. REPORT TO ANCA DEL CASTILLO TO ASSUME CARE OF PT.
[2024-06-04] MEDS ORDERED: Morphine Sulfate 15 MG TABCR PO SCH (21:00)
[2024-06-05 03:23] VITALS: BP 125/80
[2024-06-05 04:47] LABS: Hematocrit 42.8 % (37.0-53.0); Hemoglobin 13.3 g/dL (13.5-17.5)
[2024-06-05 05:15] LABS: Bun/Creatinine Ratio 43.5 (12.0-20.0); Calcium, Blood 8.9 mg/dL (8.5-10.1); Creatinine, Blood 0.67 mg/dL (0.60-1.20); Magnesium, Blood 2.6 mg/dL (1.6-2.4); Phosphorus, Blood 3.4 mg/dL (2.5-4.9); Potassium, Blood 4.7 mmol/L (3.5-5.5)
--- NOTE | 2024-06-05 06:17 | NUR ---
SHIFT SUMMARY: PT A&OX4. NEUROS INTACT. HE IS ON 3LPM OXYGEN VIA NASAL CANNULA. A FEW TIMES THROUGHOUT THE NIGHT THE CANNULA CAME OFF THE PATIENT AND HE DESATURATED INTO THE MID 80S QUICKLY. HE DID NOT HAVE COMPLAINT OF SOB OR DIFFICULTY BREATHING. ON 02 HIS SPO2 IS >93%. LUNG SOUNDS ARE DIMINISHED THROUGHOUT. PTS IN AFIB ON SENIOR BUSINESS MANAGER 80S-110S MAP>65.
[2024-06-05 08:00] VITALS: BP 138/76
[2024-06-05 16:57] VITALS: BP 111/74
--- NOTE | 2024-06-05 18:05 | NUR ---
PT IS RESTING WELL IN BEDSIDE CHAIR FOR THE DAY. O2 HAS REMAINED AT 4K FOR THE DAY WHICH HE IS TOLERATING WELL. ROXANOL HAS WORKED WELL FOR AIR HUNGER FOR THE DAY. VSS. HE IS ABLE TO TALK IN FULL SENTENCES. HE DENIES CHEST PAIN OR WORSENING SOB. HE IS ABLE TO USE BEDSIDE URINAL, HEART RATE DOES INCREASE WUTH AMBULATION BUT RECOVERS WELL AT REST. HE IS ALERT AND ORIENTED ANSWERS QUESTIONS APPROPRIATELY. TAKES MEDS WELL WITH WATER. HAMMADYL HAS BEEN UPDATD. CARE MANAGEMENT AND PALLIATIVE CARE HAVE BEEN IN TO SEE PATIENT AND HAVE SPOKEN WITH DAUGHTER
[2024-06-05 19:39] VITALS: BP 109/80
[2024-06-06 00:30] VITALS: BP 119/70
[2024-06-06 05:36] LABS: Hematocrit 41.5 % (37.0-53.0); Hemoglobin 12.8 g/dL (13.5-17.5)
[2024-06-06 05:45] VITALS: BP 116/59
--- NOTE | 2024-06-06 05:46 | NUR ---
SHIFT SUMMARY AOX4. REPORTS BREATHING IS "MUCH BETTER". DOES APPEAR DYSPNIC W/LABOURED BREATHING WITH INCREASED ACTIVITY OR TALKING. SPO2 >90% ON 3.5L O2, STATES THIS IS HIS BASELINE. BS DIM T/O. REPORTS AFTER HS RESPIRATORY TX'S & MEDS HE COUGHED ALOT "OF STUFF UP". TELE AFIB 90'S. CALL LIGHT IN REACH, WILL MONITOR.
[2024-06-06 06:32] LABS: Bun/Creatinine Ratio 41.4 (12.0-20.0); Calcium, Blood 8.9 mg/dL (8.5-10.1); Creatinine, Blood 0.68 mg/dL (0.60-1.20); Potassium, Blood 5.2 mmol/L (3.5-5.5)
[2024-06-06 08:45] VITALS: BP 120/79
--- NOTE | 2024-06-06 13:51 | NUR ---
PT WITH ROXENOL Q8 HRS WHICH HE HAS TOLERATED WELL FOR AIR HUNGER. HE DOES CONTINUE TO HAVE INCREASED WORK OF BREATHING WITH REPOSITIONING OR AMBULATION BUT IS ABLE TO RECOVER QUICKLY WITHIN 2 MINUTES WITHOUT FURTHER INTERVENTION FROM THIS RN. HE CONTINUES TO SHOW AFIB ON MONITOR WITH RATE 90-110, HIS RATE DOES INCREASE TO 130-160 WHEN HE ABMULATES, THERE IS ALSO SOME ANXIETY NOTED DURING AMULATION BUT PT IS ABLE TO BE VERBALLY REDIRECTED. HE IS ALERT, HE IS ORIENTED X3, HE IS ABLE TO MAKE NEEDS KNOWN AND USES CALL LIGHT APPROPRIATELY, HE HE IS ABLE TO SIT UP AT BEDSIDE TO USE URINAL WITHOUT DIRECT ASSISTANCE FROM STAFF. HE IS EATING AND DRINKING WELL. FAMILY AND PT HAVE BEEN UPDATED BY PALLIATIVE CARE AND ORNAMENTAL METALWORK DESIGNER.
--- NOTE | 2024-06-06 16:49 | NUR ---
TRANSFER NOTE: PATIENT ARRIVED TO THE [facility] VIA PERSONAL ELECTRIC WHEELCHAIR AT 1625. PATIENT WAS ABLE TO SELF TRANSFER TO THE BED, WAS SETTLED IN BED; IN A HIGH FOWLERS POSITION. CALL LIGHT, BELONGINGS, AND WATER PROVIDED. CALL MADE TO HIS DAUGHTER LINDA NOTIFYING HER OF HER FATHER'S TRANSFER. NO SIGNS OR SYMPTOMS OF DISTRESS. PLAN OF CARE ONGOING.
[2024-06-06 20:00] VITALS: BP 112/63
[2024-06-07 04:19] VITALS: BP 131/71
--- NOTE | 2024-06-07 04:32 | NUR ---
SHIFT SUMMARY PATIENT HAD NO ACUTE CHANGES. AXOX 4 AND ONE ASSIST W/FWW TO BSC. USES URINAL AT BEDSIDE. PIV INTACT. IV SOLU-MEDROL GIVEN PER EMAR. RT IN FOR BREATHING TX. TELE MONITOR AFIB 100. ON 4L O2 NC AND BASELINE. ROXANOL 10 MG GIVEN FOR SOB. DENIES CHEST PAIN AND N/V. VSS/AFEBRILE. MIRALAX GIVEN PRN FOR REPORTED CONSTIPATION IN ADDITION TO SCHEDULE [place]. CALL LIGHT IN REACH. BED IN LOWEST POSITION. WILL CONTINUE TO MONITOR UNTIL DAY SHIFT NURSE ASSUMES CARE.
[2024-06-07 07:43] LABS: Hematocrit 42.4 % (37.0-53.0); Hemoglobin 13.2 g/dL (13.5-17.5)
[2024-06-07 07:45] VITALS: BP 121/81
[2024-06-07 08:01] LABS: Bun/Creatinine Ratio 42.8 (12.0-20.0); Calcium, Blood 8.7 mg/dL (8.5-10.1); Creatinine, Blood 0.58 mg/dL (0.60-1.20); Potassium, Blood 5.3 mmol/L (3.5-5.5)
[2024-06-07 15:08] VITALS: BP 132/73
[2024-06-07] MEDS ORDERED: HyDROXyzine HCl 25 MG Tab PO PRN (15:15)
--- NOTE | 2024-06-07 17:40 | NUR ---
PT IS SITTING UP IN BED REPORTS FEELING MUCH BETTER. RR EVEN AND UNLABORED AT REST AT THIS TIME. PT BECAME VERY ANXIOUS EARLIER THIS SHIFT. PER PT, HOME DOSE OF ZOLOFT IS 100 MG DAILY AND TYPICALLY USES ATARAZ PRN FOR ANXIETY. DR. ORTIZ NOTIFED, EMAR UPDATE. PT VERBALIZES MEDICATION WAS AFFECTIVE IN RELIEVING ANXIETY. TREATED AIR HUNGER WITH ROXINOL. PT TOLORATED WELL. PT AND DAUGHTER EXPRESSED CONCERN FOR DISCHARGE TOMORROW DUE TO IT BEING A [facility]. CAR TRIMMER AWARE. ALERT AND ORIENTED X4
[2024-06-07 19:52] VITALS: BP 134/77
[2024-06-08 02:22] VITALS: BP 131/97
--- NOTE | 2024-06-08 04:06 | NUR ---
SHIFT SUMMARY PATIENT HAD NO ACUTE CHANGES. AXOX 4 AND ONE ASSIST W/FWW TO BSC. SOB WITH EXERTION. ON 4L O2 NC AND BASELINE. RT IN FOR BREATHING TX. IV SOLU-MEDROL GIVEN PER EMAR. DENIES CHEST PAIN AND N/V. VSS/AFEBRILE. TELE MONITOR AFIB 95, COOPEATIVE WITH CARE. CALL LIGHT IN REACH. BED IN LOWEST POSITION. WILL CONTINUE TO MONITOR UNTIL DAY SHIFT NURSE ASSUMES CARE.
[2024-06-08 04:56] LABS: Hematocrit 44.4 % (37.0-53.0); Hemoglobin 13.7 g/dL (13.5-17.5)
[2024-06-08 05:20] LABS: Bun/Creatinine Ratio 38.8 (12.0-20.0); Calcium, Blood 8.9 mg/dL (8.5-10.1); Creatinine, Blood 0.7 mg/dL (0.60-1.20); Magnesium, Blood 2.6 mg/dL (1.6-2.4)
[2024-06-08 07:36] VITALS: BP 132/84
[2024-06-08] MEDS ORDERED: Sertraline HCl 100 MG Tab PO SCH (09:00)
[2024-06-08 15:23] VITALS: BP 116/65
--- NOTE | 2024-06-08 17:35 | NUR ---
SHIFT SUMMARY; PATIENT REMAINS ON BEDREST ONLY GETTING UP TO USE BATHROOM WITH A ONE PERSON FWW ASSIST. HE USES PURSED LIP BREATHING. MEDICATED WITH ROXONAL X 2 TODAY FOR AIR HUNGER. HE IS AO X 4. USE CALL LIGHT APPROPRIATELY. VITAL SIGNS ARE STABLE HE REMAINS ON 4 LITERS OXYGEN VIA NASAL CANNULA. HIS LUNGS HAVE AUDIBLE INSPIRATORY AND EXPIRATORY WHEEZES NOTED. HE IS NOTED TO HAVE MUCH STRIDOR WITH EXERTION OR WHEN TRYING TO SPEAK OR EAT. HE HAS PLEASANT AFFECT. PATIENT WILL DC IN THE AM AFTER [facility] SO HE CAN GET HIS ROXONAL RX FILLED PRIOR TO GOING HOME. PER PATIENT HE HAS CAREGIVERS HIRED BY [facility] TO ASSIST AT HOME. WILL CONTINUE TO MONITOR THIS PATIENT CLOSELY UNTIL REPORT AND HAND OFF TO NOC SHIFT RN.
[2024-06-08 21:04] VITALS: BP 147/87
[2024-06-09 02:32] VITALS: BP 144/93
[2024-06-09 05:46] LABS: Bun/Creatinine Ratio 43.4 (12.0-20.0); Calcium, Blood 8.7 mg/dL (8.5-10.1); Creatinine, Blood 0.65 mg/dL (0.60-1.20); Magnesium, Blood 2.5 mg/dL (1.6-2.4); Potassium, Blood 5.1 mmol/L (3.5-5.5)
--- NOTE | 2024-06-09 07:16 | NUR ---
SHIFT SUMMARY PT IS A&OX4, PLEASANT AND COOPERATIVE WITH CARES. VSS ON 4L NC. PER TELEMETRY PT IS A-FIB IN THE 'S. DAVIS STATES THE SCHEDULED MS CONTIN AND PRN ROXANOL IS REALLY HELPING WITH HIS PAIN AND AIR HUNGER. HE IS APPRECIATIVE OF HIS CARE. TOLERATING A REGULAR DIET. X1 ASSIST WITH FWW, NOOB THIS SHIFT. USING URINAL INDEPENDENTLY IN BED. NO BM THIS SHIFT, BOWEL CARE ADMINISTERED. BED IN LOWEST POSITION, CALL LIGHT WITHIN REACH.
[2024-06-09 07:53] VITALS: BP 132/83
--- NOTE | 2024-06-09 09:38 | NUR ---
This PC RN had a goals of care meeting with pt yesterday afternoon. He was thinking about returning home with home health, however he wanted to further discuss hospice, as we had briefly discussed it a few days prior. He decided to discharge with [facility], as they had an opening this morning, and he states he's definitely ready to get home. [facility] hospice request orders for comfort pack, along with separate Roxanol rx be sent to [facility]. Passed this information along to EDWIN.
[2024-06-09] MEDS ORDERED: DIGOX125 MC1 PO (11:38)
[2024-06-09] MEDS ORDERED: DOCUZEN 8.6-501 EACH PO (11:39)
[2024-06-09] MEDS ORDERED: MORP20L (11:40)
[2024-06-09] MEDS ORDERED: Morphine Sulfat15 MG PO (11:40)
[2024-06-09] MEDS ORDERED: LORA.5 PO (11:41)
[2024-06-09] MEDS ORDERED: PRED20 PO (11:41)
--- NOTE | 2024-06-09 12:34 | NUR ---
pt discharged DISCHARGE INSTRUCTIONS WERE GIVEN. THE PT TRANSFERED VIA MOTORIZED WHEELCHAIR ACCOMPANIED BY THE METAL HANDLER. PT HAD PORTABLE OXYGEN APPLIED
[2024-06-15] MEDS ORDERED: HYDCHL25 PO (21:52)
== END 2024-06-09 12:25 | disposition hospice, home (50) | DRG 189 ==
LOC: ER 19:05 → PCU 05-31 00:22 → MEDS 05-31 00:22 → PCU 05-31 03:48 → MEDS 06-06 15:54
PROVIDERS: Emergency Medicine; Hospitalist; ADMIT Internal Medicine
PROC: 5A09357 Assistance with Respiratory Ventilation, Less than 24 Consecutive Hours, Continuous Positive Airway Pressure (ICD-10-PCS; principal; 2024-05-30)
DX: J96.21 Acute and chronic respiratory failure with hypoxia (principal); J44.1 Chronic obstructive pulmonary disease with (acute) exacerbation; J44.0 Chronic obstructive pulmonary disease with (acute) lower respiratory infection; J96.22 Acute and chronic respiratory failure with hypercapnia; J43.9 Emphysema, unspecified; G47.33 Obstructive sleep apnea (adult) (pediatric); Z51.5 Encounter for palliative care; Z66 Do not resuscitate; G62.9 Polyneuropathy, unspecified; N40.0 Benign prostatic hyperplasia without lower urinary tract symptoms; E78.5 Hyperlipidemia, unspecified; I48.0 Paroxysmal atrial fibrillation; J40 Bronchitis, not specified as acute or chronic; Z87.891 Personal history of nicotine dependence; Z99.81 Dependence on supplemental oxygen; Z79.01 Long term (current) use of anticoagulants; Z79.51 Long term (current) use of inhaled steroids; Z79.899 Other long term (current) drug therapy; Z79.891 Long term (current) use of opiate analgesic
CPT/HCPCS: 0241U; 36415; 71045; 71250; 80048; 80053; 82803; 83735; 83880; 84100; 84439; 84443; 84484; 85014; 85018; 85025; 85379; 93005; 93010; 93306; 94640; 94644; 94664; 94760; 94762; 96365; 96368; 96375; 96376; 97110; 97161; 97165; 97530; 97535; 99285-25; A9270; J0456; J0696; J1940; J2270; J2919; J3480; J7030; J7050; J7614

== ENCOUNTER 2024-06-15 15:56 | Inpatient (IN) | payer OTHER ==
[2024-06-15] VITALS (19 sets, daily range): BP systolic 97–152; BP diastolic 51–89
[~2024-06-15] VITALS: Ht 182.9 cm; Wt 96.0 kg
[~2024-06-15 15:56] MED LIST changes: +DIGOX125 MC1 PO; +DOCUZEN 8.6-501 EACH PO; +Flonase 0.05% N16 GM; +LEVALBUTER1.25 MG/01 INH; +LEVALBUTEROL TA15 G1 INH; +LORA.5 PO; +METO25ER PO; +MORP20L; +Morphine Sulfat15 MG PO; +NARCAN4 M1; +Norco 10-325 T1 EACH PO
[2024-06-15] MEDS ORDERED: Albuterol 2.5 MG/3 ML VIAL INH SCH (16:10)
[2024-06-15 16:16] LABS: BASOPHILS ABSOLUTE AUTO 0.04 K/mm3 (0.00-0.23); BASOPHILS PERCENT AUTO 0 % (0-2); Base Excess Venous 16.9 mmol/L; Bicarbonate Venous 38.5 mmol/L (24.0-30.0); EOSINOPHILS ABSOLUTE AUTO 0.24 K/mm3 (0.00-0.68); EOSINOPHILS PERCENT AUTO 1 % (0-6); Hematocrit 31.9 % (37.0-53.0); Hemoglobin 9.7 g/dL (13.5-17.5); IMMATURE GRAN ABSOLUTE AUTO 0.17 K/mm3 (0.00-0.10); IMMATURE GRAN PERCENT AUTO 1 % (0-1); LYMPHOCYTES ABSOLUTE AUTO 2.59 K/mm3 (0.84-5.20); LYMPHOCYTES PERCENT AUTO 12 % (21-46); MONOCYTES ABSOLUTE AUTO 1.83 K/mm3 (0.16-1.47); MONOCYTES PERCENT AUTO 8 % (4-13); Mean Corpuscular HGB 28.7 pg (26.0-34.0); Mean Corpuscular HGB Conc 30.4 g/dL (31.5-36.5); Mean Corpuscular Volume 94 fL (80-100); Mean Platelet Volume 10.8 fL (9.1-12.4); NEUTROPHILS ABSOLUTE AUTO 17.63 K/mm3 (1.96-9.15); NEUTROPHILS PERCENT AUTO 78 % (41-73); PCO2 Venous 67.6 mmHg (38-42); Platelet Count 194 K/mm3 (150-400); RDW Coefficient Variation 12.9 % (11.7-14.2); RDW Standard Deviation 44.5 fL (35.1-46.3); Red Blood Cell Count 3.38 M/mm3 (4.30-5.90)
[2024-06-15] MEDS ORDERED: Morphine Sulfate 10 MG/ML 1MLSYR INH ONE (16:30)
[2024-06-15 16:41] LABS: Albumin, Blood 2.1 g/dL (3.4-5.0); Albumin/Globulin Ratio 0.6 (0.8-1.8); Bilirubin, Total 0.7 mg/dL (0.1-1.0); Bun/Creatinine Ratio 50.5 (12.0-20.0); Calcium, Blood 8.7 mg/dL (8.5-10.1); Creatinine, Blood 0.55 mg/dL (0.60-1.20); Globulin, Blood 3.3 g/dL (2.2-4.0); Potassium, Blood 4.5 mmol/L (3.5-5.5); Total Protein, Blood 5.4 g/dL (6.4-8.2)
[2024-06-15] MEDS ORDERED: Vancomycin HCL 2,000 MG in NS 520 ML IV ONE (17:15)
[2024-06-15] MEDS ORDERED: Cefepime HCl 1,000 MG in NS 100 ML IV ONE (17:15)
[2024-06-15] MEDS ORDERED: NS 1,000 ML IV ONE (18:06)
[2024-06-15] MEDS ORDERED: NS 1,000 ML IV SCH (18:15)
[2024-06-15] MEDS ORDERED: LORazepam 2 MG/ML 1ML Injection IV PRN (18:45)
[2024-06-15] MEDS ORDERED: Ipratropium/Albuterol SulF 2.5-0.5MG/3 ML Amp INH SCH (18:45)
[2024-06-15] MEDS ORDERED: Ondansetron HCl 2 MG / ML 2ML Vial IV PRN (18:45)
[2024-06-15] MEDS ORDERED: FLU VACC TS2024-25(6MOS UP)/PF 45 MCG/0.5 ML SYRINGE IM ONE (20:00)
[2024-06-15 20:17] LABS: Digoxin (Lanoxin) 0.82 ug/mL (0.80-2.00)
--- NOTE | 2024-06-15 20:30 | NUR ---
ASSUMPTION OF CARE/ADMISSION TO ICU PT TRANSFERED TO ICU VIA ER GURNEY, TRANSFERED TO ICU BED VIA SLIDER SHEET. PT ALERT AND ORIENTED X4, ANSWERS QUESTIONS APPROPRIATELY, FOLLOWS DIRECTION WHEN PROMPTED AND IS ABLE TO MAKE HIS NEEDS KNOWN. PT MOVES EXTREMITIES EQUALLY BILATERALLY. HR 80-120'S AFIB, AMIODARONE INFUSING AT 1MG/MIN. SBP 80-110'S, MAP >65. PT DENIES CP/PRESSURE. PT ON BIPAP ON ARRIVAL TO UNIT TRANSITIONED TO NC @4LPM FOR PT TO TAKE MEDICATION. PT REFUSES TO REPLACE BIPAP AT THIS TIME, PREFERS TO STAY ON NC, OXYGEN SATURATION >95%. ABDOMEN FIRM, BOWEL TONES HYPOACTIVE. PT DENIES PAIN, ALSO DENIES N/V. PT ATTEMPTING TO USE URINAL TO VOID, NO OUTPUT AT THIS TIME. PIV IN PLACE TO RAC AND LAC. PT LOWER EXTREMITIES EDEMATOUS, PRESSURE ULCER PRESENT TO GLUTEAL FOLD, PROVIDER AWARE, PICTURE IN CHART, MEPILEX APPLIED. BED IN LOWEST POSITION, CALL LIGHT WITHIN REACH, CARE CONTINUES.
[2024-06-15] MEDS ORDERED: Apixaban 5 MG Tab PO SCH (21:00)
[2024-06-15] MEDS ORDERED: MethylPREDNISolone Sod Succ 125 MG Vial IV SCH (21:00)
[2024-06-15] MEDS ORDERED: Ventolin5 MG/1 ML INH (21:49)
[2024-06-15] MEDS ORDERED: Norco 10-325 T1 EACH (21:51)
[2024-06-15] MEDS ORDERED: Mirtazapine 30 MG Tab PO SCH (22:15)
--- NOTE | 2024-06-15 22:25 | NUR ---
WOUND NOTIFICATION CALL PLACED TO NAM NATIONAL ACCOUNTS RECRUITER REGARDING PT PRESSURE ULCER TO GLUTEAL FOLD PRESENT ON ARRIVAL TO ICU. PICTURE IN CHART, MEPILEX APPLIED. CARE CONTINUES.
[2024-06-16] VITALS (58 sets, daily range): BP systolic 89–149; BP diastolic 52–88
[2024-06-16] MEDS ORDERED: Cefepime HCl 2,000 MG in NS 100 ML IV SCH
[2024-06-16] MEDS ORDERED: NS 250 ML IV PRN (00:30)
[2024-06-16 03:50] LABS: BASOPHILS ABSOLUTE AUTO 0.02 K/mm3 (0.00-0.23); BASOPHILS PERCENT AUTO 0 % (0-2); EOSINOPHILS PERCENT AUTO 0 % (0-6); Hematocrit 25.2 % (37.0-53.0); Hemoglobin 7.8 g/dL (13.5-17.5); IMMATURE GRAN ABSOLUTE AUTO 0.14 K/mm3 (0.00-0.10); IMMATURE GRAN PERCENT AUTO 1 % (0-1); LYMPHOCYTES PERCENT AUTO 2 % (21-46); MONOCYTES ABSOLUTE AUTO 0.17 K/mm3 (0.16-1.47); MONOCYTES PERCENT AUTO 1 % (4-13); Mean Corpuscular HGB 28.7 pg (26.0-34.0); Mean Corpuscular Volume 93 fL (80-100); Mean Platelet Volume 11.2 fL (9.1-12.4); NEUTROPHILS ABSOLUTE AUTO 17.56 K/mm3 (1.96-9.15); NEUTROPHILS PERCENT AUTO 96 % (41-73); Platelet Count 143 K/mm3 (150-400); RDW Coefficient Variation 12.9 % (11.7-14.2); RDW Standard Deviation 43.2 fL (35.1-46.3); Red Blood Cell Count 2.72 M/mm3 (4.30-5.90); White Blood Cell Count 18.29 K/mm3 (4.00-11.30)
[2024-06-16 04:13] LABS: Albumin, Blood 1.8 g/dL (3.4-5.0); Albumin/Globulin Ratio 0.6 (0.8-1.8); Bilirubin, Total 0.4 mg/dL (0.1-1.0); Bun/Creatinine Ratio 57.2 (12.0-20.0); Calcium, Blood 7.8 mg/dL (8.5-10.1); Creatinine, Blood 0.44 mg/dL (0.60-1.20); Magnesium, Blood 2.3 mg/dL (1.6-2.4); Potassium, Blood 3.9 mmol/L (3.5-5.5); Total Protein, Blood 4.8 g/dL (6.4-8.2)
--- NOTE | 2024-06-16 05:54 | NUR ---
SHIFT SUMMARY NO ACUTE CHANGES THIS SHIFT. PT CONTINUES TO REST IN BED, SLEEPING BUT AROUSABLE. PT ANSWERS QUESTIONS APPROPRAITELY, FOLLOWS DIRECTION WHEN PROMPTED AND IS ABLE TO MAKE HIS NEEDS KNOWN. PT MOVES EXTREMITIES EQUALLY BILATERALLY. HR 70-90'S AFIB, AMIODARONE INFUSING AT 0.5MG/MIN. PT DENIES CP/PRESSURE. SBP 80-120'S, MAP >65. PT ON 4LPM VIA NC, OXYGEN SATURATION >95%, PT WOB HAS DECREASED SIGNIFICANTLY THIS SHIFT. ABDOMEN FIRM, BOWEL TONES ACTIVE. PT USES URINAL TO VOID. PIV IN PLACE TO RAC AND LAC. BED IN LOWEST POSITION, CALL LIGHT WITHIN REACH, CARE CONTINUES.
[2024-06-16] MEDS ORDERED: Vancomycin HCL 1,500 MG in NS 250 ML IV SCH (06:00)
--- NOTE | 2024-06-16 07:31 | NUR ---
ASSUMPTION OF CARE PT RESTING IN BED. ALERT AND ORIENTED. AFIB ON TELE, AMIODARONE GTT RUNNING. ON 4L NC. CALL GUTIERREZ WITHIN REACH. BED LOW AND LOCKED
[2024-06-16] MEDS ORDERED: Digoxin 0.125 MG Tab PO SCH (09:00)
[2024-06-16] MEDS ORDERED: dilTIAZem HCL 120 MG CAP.CD PO SCH (09:00)
[2024-06-16] MEDS ORDERED: Lactobacil 2-S.Thermo-Bifido 1 1 Cap PO SCH (09:00)
[2024-06-16] MEDS ORDERED: Sertraline HCl 50 MG Tab PO SCH (09:00)
[2024-06-16] MEDS ORDERED: Tamsulosin HCl 0.4 MG Cap PO SCH (09:00)
[2024-06-16 09:43] LABS: Percent Saturation 15.5 % (20.0-50.0)
[2024-06-16] MEDS ORDERED: HYDROcodone 5-APAP 325 TAB PO PRN (12:00)
[2024-06-16] MEDS ORDERED: Albuterol 2.5 MG/3 ML VIAL INH PRN (12:25)
[2024-06-16] MEDS ORDERED: Tiotropium Bromide 2.5 MCG/ACT MIST INHAL (10 ACT/4 GM) INH SCH (12:30)
[2024-06-16] MEDS ORDERED: Mometasone/Formoterol MDI 200/5 mcg 13 GM INH SCH (12:30)
[2024-06-16] MEDS ORDERED: Guaifenesin/Dextromethorphan Syrup 5 ML UDC PO PRN (13:30)
--- NOTE | 2024-06-16 17:21 | NUR ---
CASE CONFRENCE. PROVIDER DISCUSSED GOALS OF CARE WITH PATIENT. PATIENT REPORTED THAT HIS GOAL AT THIS TIME IS TO SEEK TREATMENT. HE WOULD LIKE TO COME OFF HOSPICE SERVICES AND REMAIN IN THE HOSPITAL AT THIS TIME. DISCUSSED WITH AVIONICS INTEGRATION ENGINEER.
--- NOTE | 2024-06-16 17:21 | NUR ---
UPDATE PT HR JUMPED INTO 140S SUSTAINING. BP 124/76. DR. NOWAK CALLED, WILL GIVE 5MG IVP METOPROLOL.
[2024-06-16] MEDS ORDERED: Metoprolol Tartrate 1 MG/ML 5 ML VIAL IV PRN (17:25)
--- NOTE | 2024-06-16 18:01 | NUR ---
SHIFT SUMMARY Pt pleasant and cooperative with care. re-started home inhalers. Amio gtt discontinued. Pt no longer wishing to be on hospice, hospice nurse came to see patient, paperwork signed and in chart. Eval by PT done, per PT it's preferable if patient can be in chair when they round. Patient gets very nervous sitting at EOB. At dinnertime, pt HR went into 140s, given 5mg IVP metoprolol per Dr. Zhang with good effect. Daughter updated on POC. N Alert and oriented C Afib on monitor. Started on PO cardizem this AM R : lungs diminished. on 4L NC. Pursed lip breathing noted. Very quickly out of breath with any activity/repositioning GI/: Poor appetite, encouraged PO intake. voiding indepentently in urinal. No BM this shift. SKIN : Generalized edema. Pressure ulcer to gluteal fold. q2 turning and Nathan utilized to promote wound healing LINES: bilat PIV intact and patent.
--- NOTE | 2024-06-16 20:22 | NUR ---
ASSUMED CARE OF PATIENT AT APPROXIMATELY 1900. REPORT RECEIVED FROM JONAS Estrada RN. PT RESTING UPRIGHT IN BED, WATCHING TELEVISION. ANSWERING QUESTIONS DURING BEDSIDE REPORT APPROPRIATELY. CONTINOUS CARDIAC MONITORING IN PLACE SHOWING AFIB WITH HR IN 90'S-110'S. BP 132/72, MAP 86. ON 4LPM O2 VIA NC WITH O2 SATURATION OF 97%. VSS AND NO ACUTE NEEDS IDENTIFED AT THIS TIME. SEE SHIFT ASSESSMENT FOR FULL DETAILS.
[2024-06-16] MEDS ORDERED: Arginine/Glutamine/Calcium Hmb 1 Packet PO SCH (21:00)
[2024-06-16] MEDS ORDERED: GuaiFENesin 600 MG TabCR PO SCH (21:00)
[2024-06-17] VITALS (51 sets, daily range): BP systolic 108–164; BP diastolic 56–130
--- NOTE | 2024-06-17 05:02 | NUR ---
SHIFT SUMMARY PT SLEPT T/O MAJORITY OF SHIFT, HOWEVER A&O X 4 WHEN WAKE. ABLE TO FOLLOW COMMANDS, MAKE PURPOSEFUL MOVEMENTS, AND MAKE NEEDS KNOWN. AFEBRILE AND DENIED PAIN. CONTINOUS CARDIAC MONITORING IN PLACE SHOWING AFIB WITH HR IN 80'S-110'S. BP STABLE WITH MAP > 65. ALTERNATED BIPAP AND NC THIS EVENING WITH O2 SATURATIONS MAINTAINING > 92%. NO BM THIS SHIFT. NO URINE OUT THIS SHIFT. MEPILEX TO GLUTEAL CLEFT C/D/I. WILL CONTINUE TO MONITOR AND REPORT TO ONCOMING RN.
[2024-06-17 05:36] LABS: Hematocrit 22.8 % (37.0-53.0); Hemoglobin 7.2 g/dL (13.5-17.5); Mean Corpuscular HGB 29.4 pg (26.0-34.0); Mean Corpuscular HGB Conc 31.6 g/dL (31.5-36.5); Mean Corpuscular Volume 93 fL (80-100); Mean Platelet Volume 10.6 fL (9.1-12.4); Platelet Count 196 K/mm3 (150-400); RDW Coefficient Variation 13.2 % (11.7-14.2); RDW Standard Deviation 44.1 fL (35.1-46.3); Red Blood Cell Count 2.45 M/mm3 (4.30-5.90); White Blood Cell Count 19.72 K/mm3 (4.00-11.30)
[2024-06-17 05:58] LABS: Anion Gap 6 mmol/L (3-11); Blood Urea Nitrogen 36 mg/dL (8-24); Bun/Creatinine Ratio 68.4 (12.0-20.0); CO2, Blood 40 mmol/L (21-32); Calcium, Blood 8.6 mg/dL (8.5-10.1); Chloride, Blood 100 mmol/L (98-108); Creatinine, Blood 0.53 mg/dL (0.60-1.20); Glomerular Filtration Rate 106 (60-); Glucose, Blood 169 mg/dL (70-99); Potassium, Blood 3.9 mmol/L (3.5-5.5); Sodium, Blood 142 mmol/L (136-145); Vancomycin, Trough 14.4 ug/mL (5.0-10.0)
[2024-06-17] MEDS ORDERED: Vancomycin HCL 1,750 MG in NS 500 ML IV SCH (06:17)
[2024-06-17] MEDS ORDERED: Iron Dextran 50 MG / ML 2ML Vial IV ONE (08:00)
[2024-06-17] MEDS ORDERED: MethylPREDNISolone Sod Succ 125 MG Vial IV SCH (08:30)
[2024-06-17] MEDS ORDERED: Ondansetron HCl 2 MG / ML 2ML Vial IV ONE (08:35)
[2024-06-17] MEDS ORDERED: Fluticasone 0.05% Nasal Spray SCH (09:00)
[2024-06-17] MEDS ORDERED: Furosemide 10 MG / ML 2ML Vial IV SCH (09:00)
[2024-06-17] MEDS ORDERED: Diltiazem HCl 180 MG Cap.CD PO SCH (09:00)
[2024-06-17] MEDS ORDERED: Iron Dextran 975 MG in NS 250 ML IV ONE (09:00)
[2024-06-17] MEDS ORDERED: Docusate Sodium 100 MG Cap PO SCH (09:00)
[2024-06-17] MEDS ORDERED: Pantoprazole Sodium 20 MG Tab PO SCH (09:00)
[2024-06-17] MEDS ORDERED: Magnesium Hydroxide Conc 10 ML UDC PO PRN (09:05)
[2024-06-17] MEDS ORDERED: Metoclopramide HCl 5MG / ML 2ML Vial IV PRN (10:40)
[2024-06-17 14:21] LABS: Adenovirus Not Detected (NOT DETECT); Bordetella pertussis Not Detected (NOT DETECT); Chlamydophila pneumoniae Not Detected (NOT DETECT); Coronavirus 229E Not Detected (NOT DETECT); Coronavirus HKU1 Not Detected (NOT DETECT); Coronavirus NL63 Not Detected (NOT DETECT); Coronavirus OC43 Not Detected (NOT DETECT); Human Metapneumovirus Not Detected (NOT DETECT); Human Rhinovirus/Enterovirus Detected (NOT DETECT); Influenza A/2009-H1 Not Detected (NOT DETECT); Influenza A/H1 Not Detected (NOT DETECT); Influenza A/H3 Not Detected (NOT DETECT); Influenza B Not Detected (NOT DETECT); Mycoplasma pneumoniae Not Detected (NOT DETECT); Parainfluenza Virus 1 Not Detected (NOT DETECT); Parainfluenza Virus 2 Not Detected (NOT DETECT); Parainfluenza Virus 3 Not Detected (NOT DETECT); Parainfluenza Virus 4 Not Detected (NOT DETECT); Respiratory Syncytial Virus Not Detected (NOT DETECT); SARS-Cov-2 (COVID-19), BioFire Not Detected (NOT DETECT)
--- NOTE | 2024-06-17 17:32 | NUR ---
Pt transferred to PCU 20. Report given to RN assuming care. Pt very nauseated this shift, PRN anti-emetics used with varying success. Pt does not tolerate BiPAP mask for long periods of time. All personal belongings sent with patient to new room. See chart for details.
--- NOTE | 2024-06-17 18:03 | NUR ---
ASSUMED CARE @ APPROX 1720 PT TRANFERED FROM ICU BED TO PCU BED VIA LIFT. PT A&O X4, OBEYS COMMANDS AND ABLE TO MAKE NEEDS KNOWN, CALL LIGHT IN REACH, PT MOVES ALL EXTREMTIES. ON CONTINOUS SPO2, SPO2 GREATER THAN 90% ON 6L O2 VIA NC, PT DID DESATE TO SPO2 85% WHILE LAYING FLAT AND ROLLING TO REMOVE OLD LINEN AND DO BED BATH, PT REPORTS DIFFICULY BREATHING WHILE LYING FLAT, PT SAT UP WITH BED AND REPORTS IMPROVED WORK OF BREATHING, PT BREATHS SHALLOW AND TACHY, LUNGS SOUND DIM BUT CLEAR. CONTINOUS CARDIAC MONTIORING, RHYTHM AFIB WITH A BBB PER AREA COORDINATOR, RATE 120'S, HR DID TOUCH 150'S DURING TRANSFER, BP WNL, +2 EDEMA TO BLE, FAINT PEDAL PULSES, STRONG RADIAL PULSES, PT DENIES CHEST P/P . PT REFUSED DINNER, EDUCATED PT TO CALL IF HE GETS HUNGRY WE HAVE SOME FOOD ON THE UNIT, PT DENIES NAUSEA AT THIS TIME, UMBILICAL HERNIA NOTED. REDNESS AND BROKEN SKIN TO COCCYX, MEPELEX REPLACED. AWAITNING TO GIVE REPORT TO ON COMING RN.
[2024-06-18 04:22] VITALS: BP 155/81
[2024-06-18 04:38] LABS: Hematocrit 23.1 % (37.0-53.0); Hemoglobin 7.4 g/dL (13.5-17.5); Mean Corpuscular HGB 29.7 pg (26.0-34.0); Mean Corpuscular Volume 93 fL (80-100); Mean Platelet Volume 10.2 fL (9.1-12.4); NRBC ABSOLUTE 0.23 K/mm3 (0.00-0.02); NRBC Auto 1.2 /100 WBC (0.0-0.2); Platelet Count 195 K/mm3 (150-400); RDW Coefficient Variation 13.7 % (11.7-14.2); Red Blood Cell Count 2.49 M/mm3 (4.30-5.90); White Blood Cell Count 19.08 K/mm3 (4.00-11.30)
[2024-06-18 05:03] LABS: Bun/Creatinine Ratio 73.1 (12.0-20.0); Calcium, Blood 9.1 mg/dL (8.5-10.1); Creatinine, Blood 0.55 mg/dL (0.60-1.20); Potassium, Blood 3.9 mmol/L (3.5-5.5)
--- NOTE | 2024-06-18 06:41 | NUR ---
SHIFT SUMMARY PATIENT ALERT AND ORIENTED X4. HAD NO COMPLAINTS OF PAIN. REPORTS HAVING CONSTANT SHORTNESS OF BREATH, ESPECIALLY WITH ACTIVITY. PATIENT PLACED ON BIPAP OVERNIGHT DUE TO DESATING ON 6 LITERS WHILE SLEEPING. WHEN BIPAP WAS REMOVED FOR 0600 MEDICATION THIS MORNING HE HAD INCREASED WORK OF BREATHING AND REMAINS ON BIPAP. VITAL SIGNS STABLE, AFIB ON TELE. WILL CONTINUE TO MONITOR. CALL LIGHT WITHIN REACH.
[2024-06-18 07:39] VITALS: BP 157/87
[2024-06-18] MEDS ORDERED: Magnesium Hydroxide Conc 10 ML UDC PO PRN (08:40)
[2024-06-18] MEDS ORDERED: dilTIAZem HCL 60 MG CAP.SR PO SCH (09:00)
[2024-06-18] MEDS ORDERED: Furosemide 10 MG/ML 4ML Vial IV SCH (09:00)
[2024-06-18 10:47] VITALS: BP 129/57
[2024-06-18 11:05] LABS: Digoxin (Lanoxin) 0.63 ug/mL (0.80-2.00)
--- NOTE | 2024-06-18 11:28 | NUR ---
am note this rn assumed care at 0700. vital signs stable. patient switches between bipap at 30% and 6l nc. patient baseline oxygen is 3.5l nc. patient is alert and oriented x4. neuro is intact. patient is able to make needs known and uses call light appropriately. denies pain, chest pain/pressure, or shortness of breath. patient lung sounds dim throughout. see shift assessment for further detials. md monk in to see patient. plan of care up to date.
[2024-06-18 15:27] VITALS: BP 122/110
--- NOTE | 2024-06-18 16:16 | NUR ---
update this rn spoke with daughter nano and gave her an update on patient condition and current plan of care.
--- NOTE | 2024-06-18 17:32 | NUR ---
shift summary vital signs remain stable. neuro remains intact. repositioned throughout the shift for skin integrity. no acute changes throughout the shift. plan of care is up to date. discussed with patient about motivation and willingness to praticipate with physical therapy. patient verbalized understanding of needing to participate in care.
[2024-06-18 17:53] LABS: Vancomycin, Trough 21.5 ug/mL (5.0-10.0)
[2024-06-18] MEDS ORDERED: Vancomycin HCL 1,500 MG in NS 250 ML IV SCH (18:00)
[2024-06-18 21:35] VITALS: BP 127/66
[2024-06-19] VITALS (13 sets, daily range): BP systolic 109–167; BP diastolic 52–83
[2024-06-19 05:27] LABS: Hematocrit 21.5 % (37.0-53.0); Hemoglobin 6.8 g/dL (13.5-17.5); Mean Corpuscular HGB 30.1 pg (26.0-34.0); Mean Corpuscular HGB Conc 31.6 g/dL (31.5-36.5); Mean Corpuscular Volume 95 fL (80-100); Mean Platelet Volume 10.5 fL (9.1-12.4); NRBC ABSOLUTE 0.72 K/mm3 (0.00-0.02); NRBC Auto 3.7 /100 WBC (0.0-0.2); Platelet Count 204 K/mm3 (150-400); RDW Coefficient Variation 14.2 % (11.7-14.2); RDW Standard Deviation 47.3 fL (35.1-46.3); Red Blood Cell Count 2.26 M/mm3 (4.30-5.90); White Blood Cell Count 19.35 K/mm3 (4.00-11.30)
[2024-06-19 05:49] LABS: Bun/Creatinine Ratio 76.2 (12.0-20.0); Calcium, Blood 8.7 mg/dL (8.5-10.1); Creatinine, Blood 0.54 mg/dL (0.60-1.20)
--- NOTE | 2024-06-19 06:21 | NUR ---
SHIFT SUMMARY PATIENT ALERT AND ORIENTED X4. HAD NO COMPLAINTS OF PAIN. PATIENT IS TACHYPNIC WITH INCREASED WORK OF BREATHING, ON 5 LITERS O2 VIA NASAL CANULA. WORE BIPAP TO SLEEP AT PATIENT'S REQUEST. VITAL SIGNS STABLE, AFIB ON TELE. NOTIFIED DR FARLEY OF PATIENT'S HEMEGLOBIN OF 6.[address] FARLEY CAME TO BEDSIDE TO CONSENT PATIENT FOR BLOOD TRANSFUSION. WILL CONTINUE TO MONITOR. CALL LIGHT WITHIN REACH.
[2024-06-19] MEDS ORDERED: Furosemide 10 MG/ML 4ML Vial IV SCH (09:00)
--- NOTE | 2024-06-19 09:46 | NUR ---
am note this rn assumed care at 0700. vital signs stable. tele afib 90-110s. spo2 >92% on 5l nc, baseline 3.5lnc. will titrate as patient tolerates back to baseline. patient requests to use bipap when sleeping. patient is alert and oriented x4. neuro is intact. patient states he feels more tired today than yesterday. patient is able to make needs known and uses call light appropriately. patient denies pain, chest pain/pressure, and no shortness of breath at rest, but reports shortness of breath with movement in bed. patient lung sounds dim throughout. patient has no had a bowel movement yet, bowel protocol medications given this morning along with prune juice. see shift assessment for further detials. md monk in room and discussed increasing lasix to three times a day instead of two. patient agrees. confirmed with md monk for only one unit of blood to be transfused. one unit of blood currently transufing. plan of care is up to date
--- NOTE | 2024-06-19 13:44 | NUR ---
UPDATE this rn updated patients daughter on current condition and plan of care.
[2024-06-19] MEDS ORDERED: MethylPREDNISolone Sod Succ 40 MG VIAL IV SCH (16:00)
--- NOTE | 2024-06-19 17:35 | NUR ---
shift summary patient neuro remains intact. vital signs stable. see previous notes. plan remains up to date. no acute changes.
[2024-06-20] VITALS (7 sets, daily range): BP systolic 108–127; BP diastolic 52–71
[2024-06-20 06:03] LABS: Hematocrit 25.4 % (37.0-53.0); Mean Corpuscular HGB 28.9 pg (26.0-34.0); Mean Corpuscular HGB Conc 31.5 g/dL (31.5-36.5); Mean Corpuscular Volume 92 fL (80-100); Mean Platelet Volume 10.2 fL (9.1-12.4); NRBC ABSOLUTE 0.51 K/mm3 (0.00-0.02); NRBC Auto 3.1 /100 WBC (0.0-0.2); Platelet Count 217 K/mm3 (150-400); RDW Coefficient Variation 15.1 % (11.7-14.2); RDW Standard Deviation 48.6 fL (35.1-46.3); Red Blood Cell Count 2.77 M/mm3 (4.30-5.90); White Blood Cell Count 16.22 K/mm3 (4.00-11.30)
--- NOTE | 2024-06-20 06:42 | NUR ---
SHIFT SUMMARY PATIENT ALERT AND ORIENTED X4. PATIENT DENIED HAVING ANY PAIN. PATIENT CONTINUES TO BE TACHYPNIC AND SHORT OF BREATH, REQUESTED BIPAP FOR SLEEP. VITAL SIGNS STABLE. NO ACUTE ISSUES NOTED OVERNIGHT. WILL CONTINUE TO MONITOR. CALL LIGHT WITHIN REACH.
[2024-06-20 06:51] LABS: Anion Gap 6 mmol/L (3-11); Blood Urea Nitrogen 39 mg/dL (8-24); Bun/Creatinine Ratio 78.6 (12.0-20.0); CO2, Blood 43 mmol/L (21-32); Calcium, Blood 8.5 mg/dL (8.5-10.1); Chloride, Blood 94 mmol/L (98-108); Glomerular Filtration Rate 108 (60-); Glucose, Blood 207 mg/dL (70-99); Potassium, Blood 3.4 mmol/L (3.5-5.5); Sodium, Blood 140 mmol/L (136-145); Vancomycin, Trough 22.7 ug/mL (5.0-10.0)
[2024-06-20] MEDS ORDERED: Polyethylene Glycol 3350 17 gm PO SCH (09:00)
[2024-06-20] MEDS ORDERED: LevoFLOXacin 750 MG/D5W 150ML 150 ML IV SCH (09:00)
--- NOTE | 2024-06-20 10:36 | NUR ---
AM NOTE: PATIENT ALERT AND ORIENTED. ABLE TO MOVE ALL EXTREMITIES AND FOLLOW SIMPLE COMMANDS IN BED. VERY WEAK AND REQUIRING LIFT FOR TRANSFERS. THERAPIES ORDERED. BILATERAL LOWER EXTREMITY N/T. DENIES HEADACHE/VISION CHANGES/DIZZINESS. ON 4L NASAL CANNULA AT START OF SHIFT. PATIENT WORKING HARD TO BREATH. LUNGS SOUNDS DIMINISHED AND TIGHT THROUGHOUT. BIPAP ON STANDBY AND USED INTERMIT PATIENT NEEDS FOR WORK OF BREATHING. BIPAP SETTINGS 14/8 AND 30 % FIO2. RESPIRATORY IN THIS AM TO GIVE BREATHING TREATMENTS. PATIENT ON BIPAP AT THIS TIME. SATING 90-94%. FREQUENT MOIST/WET/CONGESTED SOUNDING COUGH WITH MINIMAL-MODERATE THICK SPUTUM PRODUCTION. FLUTTER VALVE AT BEDSIDE TABLE AND PATIENT ENCOURAGED TO USE. TELE SHOWING AFIB WITH HR 80-110'S OCCASIONALLY UP TO 120'S. PO CARDIZEM GIVEN PER EMAR. GENERALIZED EDEMA THROUGHOUT WITH WEEPING EDEMA TO BILATERAL ARMS. IV ABX GIVEN THIS AM. PPP. DENIES CHEST PAIN/PRESSURE/PALPITATIONS. BOWEL TONES PRESENT IN ALL 4 QUARDRANTS. TOLERATING DIET. CONSTIPATION. DR. NOWAK TO BEDSIDE AND ORDERS FOR DAILY MIRALAX. ORDERS IN PLACE. SHORTLY AFTER BOWEL CARE MED ADMINISTRATION. PATIENT HAD SMALL DARK BROWN BOWEL MOVEMENT. NO BLOOD NOTED IN STOOL AT THIS TIME. USING URINAL TO VOID. ATTENDS IN PLACE. PATIENT RESTING WITH BIPAP IN PLACE AT THIS TIME. DENIES NEEDS. CALL LIGHT IN REACH.
[2024-06-20] MEDS ORDERED: Vancomycin HCL 1,500 MG in NS 250 ML IV SCH (12:00)
--- NOTE | 2024-06-20 13:59 | NUR ---
DISCUSSED DARK STOOL WITH DR. NOWAK. ORDERS FOR GUAIAC STOOL ON NEXT BOWEL MOVEMENT. PATIENT ON BIPAP AT THIS TIME. USING URINAL TO VOID. VITAL SIGNS CONTINUE TO BE STABLE.
[2024-06-20] MEDS ORDERED: Potassium Chloride 20 MEQ TabCR PO ONE (14:15)
[2024-06-20 16:47] LABS: Hematocrit 25.6 % (37.0-53.0); Hemoglobin 8.3 g/dL (13.5-17.5)
[2024-06-20] MEDS ORDERED: AcetaZOLAMIDE 250 MG Tab PO SCH (18:00)
--- NOTE | 2024-06-20 18:33 | NUR ---
SHIFT SUMMARY: NO ACUTE CHANGES. PATIENT REMAINS ON BIPAP FOR MOST OF SHIFT EXCEPT FOR MEALS, SNACKS AND MEDICATIONS. WHEN OFF BIPAP WEARING 4-5L NASAL CANNULA. TELE CONTINUES TO SHOW AFIB WITH HR 80-120'S DEPENDING ON WORK OF BREATHING AND ACTIVITY. TOLERATING DIET AT THIS TIME. STOOL SAMPLE NEEDING TO BE COLLECTED. PATIENT REFUSED BED BATH THIS SHIFT. IV ABX INFUSED. USING URINAL TO VOID. Q2 TURNS AND NEEDED. CALL LIGHT IN REACH. DENIES NEEDS.
[2024-06-21 04:30] VITALS: BP 123/73
[2024-06-21 04:42] LABS: Hematocrit 26.3 % (37.0-53.0); Hemoglobin 8.4 g/dL (13.5-17.5); Mean Corpuscular HGB 29.6 pg (26.0-34.0); Mean Corpuscular HGB Conc 31.9 g/dL (31.5-36.5); Mean Corpuscular Volume 93 fL (80-100); Mean Platelet Volume 10.2 fL (9.1-12.4); NRBC ABSOLUTE 0.26 K/mm3 (0.00-0.02); NRBC Auto 1.5 /100 WBC (0.0-0.2); Platelet Count 241 K/mm3 (150-400); RDW Coefficient Variation 15.4 % (11.7-14.2); RDW Standard Deviation 47.8 fL (35.1-46.3); Red Blood Cell Count 2.84 M/mm3 (4.30-5.90); White Blood Cell Count 17.72 K/mm3 (4.00-11.30)
[2024-06-21 05:02] LABS: Bun/Creatinine Ratio 64.8 (12.0-20.0); Calcium, Blood 8.7 mg/dL (8.5-10.1); Creatinine, Blood 0.54 mg/dL (0.60-1.20); Magnesium, Blood 2.1 mg/dL (1.6-2.4); Potassium, Blood 3.6 mmol/L (3.5-5.5)
--- NOTE | 2024-06-21 06:19 | NUR ---
SHIFT SUMMARY PT REMAINS A&O X4. VSS; SBP 115 - 123, HRR AFIB IN 90 - 100'S WITH OCCASSIONAL INCREASE TO 120 - 130'S BUT DID NOT SUSTAIN. PT AFEBRILE. SPO2 94 - 97% ON BIPAP. WHEN FIRST ON SHIFT, PT ON NC BUT ASKED TO BE PLACED ON BIPAP. PT WOB INCREASED AND STRUGGLING TO BREATH, RR INCREASED IN 30'S. PT WOB AND RR IMPROVED AFTER BEING ON BIPAP T/O NIGHT. PT NOT ABLE TO TOLERATE BEING OFF BIPAP MUCH DURING THE NIGHT. PT WITH MINIMAL BREAKS TO SWITCH TO NC AND PT QUICKLY REQUESTED TO BE BACK ON BIPAP. SETTINGS ON BIPAP REMAIN THE SAME 08/04, 30% FIO2. PT SLEPT WELL T/O THE NIGHT AND THIS MORNING STATES HE FEELS "MUCH BETTER" AND WANTING TO TRAIL NC. PT ON 4 LPM NC AT THIS TIME AND IS TOLERATING WELL. REPOSITIONED Q2 OR PRN. USING URINAL INDEPENDENTLY WITH 925 MLS UOP. OF NOTE, URINE APPEARS CLOUDY AND FAINT ODOR NOTED. NO BM THIS SHIFT, GUAIAC SAMPLE STILL PENDING. PT PLEASANT AND COOPERATIVE WITH CARE, ABLE TO MAKE NEEDS KNOWN. CALL LIGHT IN REACH, WILL UPDATE ONCOMING RN.
[2024-06-21 07:36] VITALS: BP 120/66
[2024-06-21] MEDS ORDERED: Trimethoprim/Sulfamethoxazole DS Tab PO SCH (09:00)
--- NOTE | 2024-06-21 09:00 | NUR ---
AM NOTE: PATIENT ALERT AND ORIENTED. STATES HE IS FINALLY FEELING BETTER THIS AM, ALTHOUGH HE IS NOT ABLE TO COME OFF BIPAP FOR EXTENDED PERIODS OF TIME. BIPAP IN PLACE AT 14/8 AT 30% FIO2 SATING 95%. WEARING 4-5L NASAL CANNULA WHEN OFF BIPAP FOR MEALS, SNACKS AND MEDICATIONS. WORK OF BREATHING INCREASED WITH TALKING OR MOVING IN BED. PATIENT ONLY ABLE TO TOLERATE 15-20 MIN OFF BIPAP. OCCASIONAL MOIST SOUNDING COUGH WITH THICK HARE SPUTUM. LUNGS SOUNDS DIMINISHED. TELE SHOWING AFIB WITH HR 80-120'S. SBP 120'S. DENIES CHEST PAIN/PRESSURE/PALPITATIONS. PPP. EDEMA NOTED THROUGHOUT. IV'S SALINE LOCKED. BOWEL TONES PRESENT IN ALL 4 QUADRANTS. TOLERATING DIET. DENIES ABDOMINAL PAIN/NAUSEA. BOWEL CARE MEDS GIVEN. SMALL SMEAR THIS AM. STILL NEED OCCULT GUAIAC STOOL SAMPLE. SKIN DRY AND FRAGILE WITH SMALL PRESSURE SORE ON COCCYX. MEPILEX CHANGED THIS AM WITH BED BATH. Q2 TURNING AND NEEDED. DR. NOWAK AT BEDSIDE THIS AM. CALL LIGHT IN REACH. PATIENT RESTING IN BED AT THIS TIME WITH BIPAP IN PLACE.
[2024-06-21] MEDS ORDERED: dilTIAZem HCL 60 MG CAP.SR PO ONE (10:00)
[2024-06-21 12:42] VITALS: BP 116/73
--- NOTE | 2024-06-21 13:43 | NUR ---
THIS RN SPOKE WITH DAUGHTER LINDA ON PHONE WITH PATIENT PERMISSION AND PROVIDED UPDATE. VITAL SIGNS REMAIN STABLE. CONTINUES TO WEAR BIPAP WITH A LUNCH BREAK. UP TO RECLINER VIA LIFT. SITTING IN RECLINER AT THIS TIME WITH FEET ELEVATED, WEARING BIPAP.
[2024-06-21 16:33] VITALS: BP 125/77
--- NOTE | 2024-06-21 17:56 | NUR ---
SHIFT SUMMARY: PATIENT REMAINS ON BIPAP FOR MOST OF THE SHIFT. UP TO RECLINER VIA LIFT. Q2 TURNING AND NEEDED. TELE REMAINS AFIB WITH HR 80-110'S. SBP 110-120'S. DENIES PAINS. BED BATH COMPLETED THIS SHIFT. USING URINAL TO VOID. LAYING IN BED AT THIS TIME. DENIES NEEDS. CALL LIGHT IN REACH.
[2024-06-21 19:30] VITALS: BP 137/74
[2024-06-21] MEDS ORDERED: dilTIAZem HCL 90 MG CAP.ER.12H PO SCH (21:00)
[2024-06-21] MEDS ORDERED: MethylPREDNISolone Sod Succ 40 MG VIAL IV SCH (21:00)
[2024-06-22] VITALS (7 sets, daily range): BP systolic 109–147; BP diastolic 66–93
[2024-06-22 05:20] LABS: Hematocrit 27.8 % (37.0-53.0); Hemoglobin 8.8 g/dL (13.5-17.5); Mean Corpuscular HGB 28.9 pg (26.0-34.0); Mean Corpuscular HGB Conc 31.7 g/dL (31.5-36.5); Mean Corpuscular Volume 91 fL (80-100); Mean Platelet Volume 10.3 fL (9.1-12.4); NRBC ABSOLUTE 0.11 K/mm3 (0.00-0.02); NRBC Auto 0.5 /100 WBC (0.0-0.2); Platelet Count 261 K/mm3 (150-400); RDW Coefficient Variation 15.9 % (11.7-14.2); RDW Standard Deviation 47.5 fL (35.1-46.3); Red Blood Cell Count 3.04 M/mm3 (4.30-5.90); White Blood Cell Count 20.32 K/mm3 (4.00-11.30)
[2024-06-22 05:43] LABS: Bun/Creatinine Ratio 58.9 (12.0-20.0); Calcium, Blood 8.9 mg/dL (8.5-10.1); Creatinine, Blood 0.63 mg/dL (0.60-1.20); Magnesium, Blood 2.2 mg/dL (1.6-2.4); Potassium, Blood 3.9 mmol/L (3.5-5.5)
--- NOTE | 2024-06-22 06:10 | NUR ---
SHIFT SUMMARY PT REMAINS A&O X4, OVERALL CONTINUES TO BE WEAK. VSS; SBP 120 - 130'S, HRR AFIB WITH RATE 70 - 120'S. PT MOSTLY 70 - 90'S WHILE SLEEPING AND AT REST, INCREASING TO 120'S WITH ACTIVITY/MOVEMENT. AFEBRILE, SPO2 97 - 98% ON BIPAP SETTINGS 14/8, 30% FIO2. PT WITH VERY SHORT BREAKS FROM BIPAP FOR MEDICATIONS AND WATER, OR PPR. ALTHOUGH PT NOT TOLERATING BEING OFF, PT REPORTS "HAVING THE MASK IS MORE COMFORTABLE" AND HELPS KEEP WOB DOWN. PT REPOSITIONED Q2 OR PT ALLOWED. CONTINUES TO USE URINAL INDEPENDENT IN BED. NO BM THIS SHIFT. PT RESTED WELL T/O SHIFT. NO ACUTE CHANGES. ABLE TO MAKE NEEDS KNOWN, WILL UPDATE ONCOMING RN. CALL LIGHT IN REACH.
[2024-06-22] MEDS ORDERED: Bumetanide 0.25 MG/ML 4ML ViaL IV SCH (09:00)
--- NOTE | 2024-06-22 11:02 | NUR ---
AM NOTE: PATIENT ALERT AND ORIENTED. STATES HE IS FEELING SLIGHTLY BETTER. CONTINUES TO BE DEPENDENT ON BIPAP FOR RESP SUPPORT, ONLY TAKING SHORT BREAKS FOR MEALS, SNACKS AND MED ADMINISTRATION. PATIENT SHORT OF BREATH WITH ANY TALKING, MOVEMENT OR INTAKE. BEDREST AT THIS TIME. LIFT TO RECLINER. TELE SHOWING AFIB WITH HR 80-110'S. SBP 120'S. DENIES CHEST PAIN/PRESSURE/PALPITATIONS. PITTING EDEMA TO BLE. IV'S SALINE LOCKED. WEARING BIPAP AT 14/8 AND 30% AND 4-5L NASAL CANNULA WHEN OFF. RESPIRATORY IN FOR TREATMENTS. MOIST/LOOSE COUGH. BOWEL TONES PRESENT IN ALL QUADRANTS. TOLERATING DIET. BOWEL CARE MEDS GIVEN THIS AM. USING URINAL TO VOID. ORAL CARE. SKIN OVERALL PALE WITH SCATTERED BRUISING AND SMALL STAGE 1 PRESSURE SORE TO RIGHT BUTTOCK. BED BATH GIVEN THIS AM. MEPILEX CHANGE, Q2 TURNING AND NEEDED. DR. NOWAK TO BEDSIDE THIS AM ORDERS TO DC STOOL OCCULT GUAIAC SAMPLE. ORDER DISCONTINUED. PATIENT IN BED AT THIS TIME SITTING UP WITH BIPAP IN PLACE WATCHING TV. DENIES NEEDS. CALL LIGHT IN REACH.
--- NOTE | 2024-06-22 12:38 | NUR ---
CALL PLACED TO UPDATE DAUGHTER LINDA WITH PATIENT PERMISSION, NO ANSWER. MESSAGE LEFT WITH CALL BACK NUMBER.
--- NOTE | 2024-06-22 14:02 | NUR ---
TRANSFER OF CARE AT THIS TIME TO ALIYA MARCH. PATIENT AND FAMILY UPDATED. THIS RN SPOKE WITH DAUGHTER LINDA ON PHONE AND PROVIDED UPDATE.
--- NOTE | 2024-06-22 14:59 | NUR ---
ASSUMED CARE @ APPROX 1330 REPORT RECIVICED FROM KOMAL Johnson RN, PT RESTING IN BED, EYES CLOSED, BREATHING UNLABORED WITHOUT SIGNS OF DISTRESS, CALL LIGHT IN REACH, PLAN OF CARE ONGOING.
--- NOTE | 2024-06-22 18:35 | NUR ---
SHIFT SUMMARY PT A&OX4, OBEYS COMMANDS, ABLE TO MAKE NEEDS KNOWN, MOVED ALL EXTREMITIES, GENERALISED WEAKNESS. CONTINOUS SPO2, NC 4-5 L O2 VIA NC WHILE NOT ON BIPAP, LUNGS DIM T/O, MOIST COUGH, PT TACHYPNIC AND PREFORMS PURSED LIP BREATHING. CONTINOUS CARDIAC MONTIORING, AFIB 70'S-120'S, BECOMING TACHY WITH ACTIVITY, BP STABLE. PT REPORTS SOME ABD DISCOMFORT BUT NOT TENDER TO TOUCH. PHYSCIAL THERAPY WORKED WITH PT THIS AFTERNOON DOING BED EXERCISES. AWAITING TO GIVE REPORT TO ONCOMING RN, PLAN OF CARE ON GOING, CALL LIGHT IN REACH.
[2024-06-23] VITALS (9 sets, daily range): BP systolic 114–148; BP diastolic 64–84
[2024-06-23 04:08] LABS: Hematocrit 27.4 % (37.0-53.0); Mean Corpuscular HGB Conc 32.8 g/dL (31.5-36.5); Mean Corpuscular Volume 91 fL (80-100); Mean Platelet Volume 10.2 fL (9.1-12.4); NRBC ABSOLUTE 0.02 K/mm3 (0.00-0.02); NRBC Auto 0.1 /100 WBC (0.0-0.2); Platelet Count 274 K/mm3 (150-400); RDW Coefficient Variation 16.6 % (11.7-14.2); RDW Standard Deviation 47.3 fL (35.1-46.3); White Blood Cell Count 17.55 K/mm3 (4.00-11.30)
[2024-06-23 04:25] LABS: Bun/Creatinine Ratio 61.8 (12.0-20.0); Calcium, Blood 8.7 mg/dL (8.5-10.1); Creatinine, Blood 0.68 mg/dL (0.60-1.20)
--- NOTE | 2024-06-23 06:11 | NUR ---
SHIFT SUMMARY PATIENT ALERT AND ORIENTED X4. HAD NO COMPLAINTS OF PAIN OVERNIGHT. APPEARS SHORT OF BREATH WHEN OFF THE BIPAP BUT WORK OF BREATHING IS IMPROVED. VITAL SIGNS STABLE. NO ACUTE ISSUES NOTED OVERNIGHT. WILL CONTINUE TO MONITOR. CALL LIGHT WITHIN REACH.
[2024-06-23] MEDS ORDERED: PredniSONE 20 MG Tab PO SCH (11:00)
[2024-06-23] MEDS ORDERED: Saline Nasal Spray 45 ML PRN (15:45)
--- NOTE | 2024-06-23 18:01 | NUR ---
SHIFT SUMMARY pT A&O X4, ABLE TO MAKE NEEDS KNOWN, OBEYS COMMANDS, MOVES ALL EXTREMITIES, WEAKNESS, PT STATED THAT HE FELT LIKE HE WAS GOING TO HAVE AN PANIC ATTACK, SAT WITH PT AND TALKED THROUGH, OFFERED PRN ATIVAN TO HELP WITH ANXIETY, PT DECLINED. CONTINOUS SPO2, SPO2 GREATER THAN 90%, ON BIPAP 14/8/30% T/O MOST OF SHIFT TAKING BREAKS ON NC AT 4L O2, LUNGS SOUND DIM T/O, SHALLOW FAST BREATHS, MOIST COUGH. CONTINOUS CARDIAC MONITORING, PT HR 80'S-110'S T/O MOST OF SHIFT, PT TOUCHED 150'S AND LOPRESSOR PUSH WAS GIVEN, PT BP STABLE WITH MAP GREATER THAN 65. PT VOIDING INTO URINAL WITH ASSISTANCE. PT DID NOT HAVE A BM THIS SHIFT, BOWEL CARE GIVEN, PT DENIES ABD PAIN OR DISCOMFORT. SMALL AREA OF BROKEN SKIN ON COCCYX, MEPILEX REPLACED. DR. SHE SHEN ON PT THIS MORNING NEW ORDERS GIVEN PLAN OF CARE ONGOING, CALL LIGHT IN REACH, AWAITING TO GIVE REPORT TO KIM MARCH
--- NOTE | 2024-06-24 | NUR ---
PHYSICIAN COMMUNICATION PATIENT UNSURE OF DATE. APPEARS ANXIOUS/RESTLESS, SHIVERING AND PULLING BIPAP OFF FORGETTING HE NEEDS OXYGEN. PATIENT DENIES BEING COLD AND IS NONFEBRILE. PATIENT IS TYPICALLY ALERT AND ORIENTED X [address] FARLEY NOTIFIED OF CHANGE.
[2024-06-24 01:21] LABS: Hemoglobin 9.4 g/dL (13.5-17.5); Mean Corpuscular HGB Conc 32.4 g/dL (31.5-36.5); Mean Corpuscular Volume 93 fL (80-100); Mean Platelet Volume 10.2 fL (9.1-12.4); NRBC ABSOLUTE 0.02 K/mm3 (0.00-0.02); NRBC Auto 0.1 /100 WBC (0.0-0.2); Platelet Count 296 K/mm3 (150-400); RDW Coefficient Variation 16.9 % (11.7-14.2); RDW Standard Deviation 50.4 fL (35.1-46.3); Red Blood Cell Count 3.13 M/mm3 (4.30-5.90)
[2024-06-24 01:23] LABS: Base Excess Venous 15.2 mmol/L; PCO2 Venous 60.5 mmHg (38-42); pH Blood Venous 7.42 (7.34-7.37)
[2024-06-24 01:39] LABS: Bun/Creatinine Ratio 83.9 (12.0-20.0); Calcium, Blood 9.1 mg/dL (8.5-10.1); Creatinine, Blood 0.56 mg/dL (0.60-1.20); Potassium, Blood 4.4 mmol/L (3.5-5.5)
[2024-06-24 04:44] VITALS: BP 141/89
--- NOTE | 2024-06-24 06:37 | NUR ---
SHIFT SUMMARY PATIENT CONTINUED TO HAVE SEVERAL EPISODES OF CONFUSION AND DELERIUM, AT ONE POINT HE WAS FOUND SITTING AT THE END OF HIS BED TRYING TO USE THE URINAL. PATIENT IS A LIFT PATIENT AND UNABLE TO STAND. ON 4 LITERS O2 NC WITH SPO2 >90%. VITAL SIGNS STABLE. WILL CONTINUE TO MONITOR. CALL LIGHT WITHIN REACH.
[2024-06-24 07:36] VITALS: BP 127/66
[2024-06-24 12:11] VITALS: BP 128/76
--- NOTE | 2024-06-24 15:10 | NUR ---
Care Conference: Met with pt at bedside along with PCU charge nurse. He is now almost 100% dependent on CPAP. He is unable to speak more than 1-2 words at a time due to SOB. Given his worsening breathing, we asked if he had thought about return to comfort care. He stated, "Yes." We explained that we could modify comfort and he can continue to use the CPAP as needed while he remains in hospital, especially to help with air hunger and work of breathing as we wait for daughter Allie to arrive. Charge nurse tells him we won't send him home to his apartment with no CG's as this is the reason he revoked hospice last time. He said, "I understand." Also spoke to pt's daughter Allie to update her. She states she is flying in [facility] so she can meet with the patient tomorrow. She v/u that he has elected to begin comfort care. For now, pt is agreeable to a modified comfort care so that he will be alert when his daughter arrives, but also less SOB.
[2024-06-24 15:49] VITALS: BP 120/72
[2024-06-24] MEDS ORDERED: Morphine Sulfate 20 MG/1ML 1 ML Oral Syringe SL PRN (16:15)
--- NOTE | 2024-06-24 17:11 | NUR ---
SHIFT SUMMARY PT A&Ox4, MOMENTS OF CONFUSION, CALLS AND COMMUNICATES NEEDS APPROPRIATELY. BP STABLE, AFIB 80-110's, DENIES CP/PRESSURE. SpO2> 92% 4L OR BIPAP / 30% FiO2, REPORTS INTERMITTENT SOB. PT VERY TIRED TODAY. LIFT FOR TRANSFERS, SPENT MOST OF DAY IN CHAIR. PALLIATIVE TO BEDSIDE, PT MADE COMFORT CARE, DAUGHTER FLYING IN FROM OUT OF TOWN 06/25. PT LIFT TRANFER BACK TO BED, BED BATH GIVEN, NOW RESTING COMFORTABLY. NO OTHER EVENTS, WILL REPORT TO ONCOMING RN.
[2024-06-24 20:40] VITALS: BP 125/79
--- NOTE | 2024-06-25 06:40 | NUR ---
SHIFT SUMMARY PT ON COMFORT CARE. PT DID NOT REQUEST ANY COMFORT MEDS THIS SHIFT AND EXPRESSED DESIRE FOR DAUGHTER TO BE PRESENT AT BEDSIDE. NEURO: A/OX4 AND ABLE TO MAKE NEEDS KNOWN. LUNGS: DIMINISHED THROUGHOUT. ORAL CARE, CHAPSTICK, AND MOUTH MOISUTRIZER APLLIED. ACCESSORY MUSCLE USE WHILE ON THE NASAL CANNULA. PT REPORTS FEELING LIKE THEY ARE RUNNING OUT OF BREATH. ONCE ON BIPAP, RESPIRATIONS NORMALIZED AND HEART RATE DECREASED. CARDIAC: TACHYCARDIC WHILE ON THE NASAL CANNULA, DOWN TO THE 80'S WHILE SLEEPING ON THE BIOAP. +1 GENERALIZED EDEMA, +2 BLE. GI/: MANWICK IN PLACE WITH CHANDNI COLORED URINE. NO BM CHARTED SINCE 06/20, MILK oF MAG AND REGLAN GIVEN.
[2024-06-25] MEDS ORDERED: Bumetanide 1 MG Tab PO SCH (09:00)
--- NOTE | 2024-06-25 15:40 | NUR ---
Pt's daughter has arrived, is at bedside visiting with patient. The patient told his daughter he "is ready" and states he's going to soon. He also told her he has a to-do list for her of things to take care of in his apartment. He continues with labored breathing, unable to speak more than one to two words without severe dyspnea. He is using his bipap often to compensate. Dr. Richardson increased roxanol and lorazepam to standard parameters for end stage COPD comfort care. Master Mechanic consulted.
[2024-06-25] MEDS ORDERED: LORazepam 2 MG/ML 1ML Injection IV PRN (15:55)
[2024-06-25] MEDS ORDERED: Morphine Sulfate 20 MG/1ML 1 ML Oral Syringe SL PRN (15:55)
--- NOTE | 2024-06-25 16:43 | NUR ---
Spiritual Care Visit. Pt. is awake in bed when he welcomed my visit. Pt. is pleasant. Facilitated a life review and listened with empathy and interest. Considered some matters of boy and belief. Though the Pts. chart identifies him as synagogue, he does not wish to have a local licensed land surveyor called on his behalf. Pt. graciously declined the offer of prayer, but welcomed this slate roofer to return. Will remain available to the Pt. and family.
--- NOTE | 2024-06-25 17:33 | NUR ---
SHIFT SUMMARY PT A&Ox4, MOMENTS OF CONFUSION, CALLS AND COMMUNICATES NEEDS APPROPRIATELY. SpO2> 92% 4L OR BIPAP 14/8 30% FiO2, REPORTS INTERMITTENT SOB, MANAGING PER EMAR. LIFT FOR TRANSFERS. FAMILY & PALLIATIVE TO BEDSIDE. NO OTHER EVENTS, WILL REPORT TO ONCOMING RN.
--- NOTE | 2024-06-26 05:10 | NUR ---
SHIFT SUMMARY. SHIFT HAS GONE WELL OVERALL, NO ACUTE CHANGES. AOX4, PLEASANT, COOPERATIVE WITH CARE, CALLS APPROPRIATELY, ABLE TO MAKE NEEDS KNOWN. SOMEWHAT ANXIOUS AT TIMES BUT WELL MANAGED VIA EMAR. HAS BEEN ABLE TO REST COMFORTABLY THROUGHOUT MOST OF SHIFT. REQUESTS ASSISTANCE APPROPRIATELY. HAVE INQUIRED SEVERAL TIMES ABOUT ADDITIONAL MEDICATION, REPOSITIONING, ETC BUT PT HAS REFUSED STATING THAT HE IS COMFORTABLE. HAS MAINTAINED >92% ON 4 L O2 VIA NC THROUGHOUT SHIFT, HAVE TITRATED DOWN TO 2.5 L O2 AND SATURATION HAS MAINTAINED >90%. COMFORT CARE REASSESSMENTS COMPLETED Q4 PER PROTOCOL. BED LOCKED IN LOWEST POSITION. CALL LIGHT LEFT WITHIN REACH. CONTINUING TO MONITOR.
[2024-06-26] MEDS ORDERED: Albuterol 2.5 MG/3 ML VIAL INH PRN (10:30)
--- NOTE | 2024-06-26 15:46 | NUR ---
AT ROUGHLY 1515, THIS RN NOTIFIED BY TELE THAT PT'S O2 SATS AR IN THE 60'S. THIS RN TO PT ROOM TO ASSESS. PT NOTED TO BE SLEEPING WITH NC OUT OF NARES AND HANGING BY RIGHT EAR. THIS REAPPLIED NC. PT AWOKEN WHILE NC BEING REAPPLIED. PT STATAED THAT HE DID NOT REALIZE THAT HIS P2 WAS PULLED. O2 TURNED UP TO 7L NC, SATS QUICKLY RAISED BACK UP TO 90'S. O2 TITRATED BACK TO 4L NC. PT REQUESTED TO BE BOOSTED AT THIS TIME. PT BOOSTED WITH ASSISTANCE OF SLABBING MACHINE OPERATOR. GOWN CHANGED DUE TO BEING WET. PT KNEES NOTED TO BE MOTTLING.
--- NOTE | 2024-06-26 17:19 | NUR ---
DAUGHTER CAME BY THIS EVENING AND REQUESTED A NOTARY. NO ONE WAS AVALIABLE AT THIS TIME. UPDATED DAUGHTER AND PROVIDED INFORMATION ABOUT MOBILE NOTARY OR SOMEONE FROM THE HOSPITAL MAY BE AVALIABLE SATURDAY.
--- NOTE | 2024-06-26 18:08 | NUR ---
SHIFT SUMMARY PT A/OX4 AND COOPERATIVE OF CARE. PT ABLE TO EXPRESS NEEDS AND CALLS APPROPIATE. PT SATS HAD ONE PERIOD OF SATS IN THE 60'W WHILE PT WAS SLEEPING AND HE ACCIDENTLY PULLED OUT HIS NC. SATS RETURNED 90'S AFTER NC REAPPLIED. PT BEING TREATED WITH ATIVAN AND ROXANOL PER EMAR. PT TURNED PERIODICALLY DURING SHIFT PT REQUESTED. DAUGHTER AT BEDSIDE PERIODICALLY DURING SHIFT AND UPDATED.
--- NOTE | 2024-06-26 22:25 | NUR ---
late assumption of care note. pt aox4, pleasant, cooperative with care, calls appropriately, able to make needs known. reports feeling better today and thinks that some of the medications he has been taking for air hunger and anxiety have contributed. denies pain thus far. has maintained adequate saturation on 4 l o2 via nc. repositioned as requested as pt often feels comfortable and does not want to be repositioned. comfort care reassessment completed @ 2000 per protocol. bed locked in lowest position. call light left within reach. continuing to monitor.
--- NOTE | 2024-06-27 04:38 | NUR ---
SHIFT SUMMARY. SHIFT HAS GONE WELL OVERALL, NO ACUTE CHANGES. PT REMAINS AOX4, PLEASANT, COOPERATIVE, ABLE TO MAKE NEEDS KNOWN, CALLS APPROPRIATELY FOR ASSISTANCE. PT HAS BEEN ABLE TO REST COMFORTABLY THROUGHOUT MOST OF SHIFT. FREQUENT INQUIRIES INTO PT COMFORT LEVEL AND DESIRE FOR REPOSITIONING BUT PT HAS THUS FAR REPORTED BEING COMFORTABLE AND REFUSED REPOSITIONING MOST OF THE TIME. HAS MAINTAINED ADEQUATE SATURATION ON 4 L O2 VIA NC. COMFORT CARE REASSESSMENTS COMPLETED Q4 PER PROTOCOL. BED LOCKED IN LOWEST POSITION. CALL LIGHT LEFT WITHIN REACH. CONTINUING TO MONITOR.
[2024-06-27] MEDS ORDERED: PredniSONE 20 MG Tab PO SCH (09:00)
[2024-06-27 09:19] VITALS: BP 119/70
--- NOTE | 2024-06-27 14:08 | NUR ---
ASSUMED CARE OF PT AT 0700 THIS AM. NO ACUTE EVENTS REPORTED OVERNIGHT. PT HAS BEEN RESTING COMFORTABLY, DTR AT BEDSIDE THIS AM, PT DENIES NEEDS. CALL LIGHT IN REACH. PT MEDICATED PER EMAR FOR SOB, RT AT BEDSIDE FOR TREATMENT. PT APPEARS TO BE RESTING COMFORTABLY T/O THE MORNING AND EARLY AFTERNOON. PLAN TO TRANSFER PT TO [facility]. DTR INFORMED.
--- NOTE | 2024-06-27 14:51 | NUR ---
PT TRANSFERRED TO [facility] WITH ALL BELONGINGS, FAMILY AT BEDSIDE. REPORT GIVEN TO RECEIVING RN.
--- NOTE | 2024-06-27 15:04 | NUR ---
PT TRANSFERED FROM [facility]. FAMILY PRESENT DURING TRANSFER. PT ORIENTED TO ROOM.
--- NOTE | 2024-06-27 18:01 | NUR ---
SHIFT SUMMARY PT IS A/OX4. ON COMFORT CARE. PT TRANSFERED FROM PCU THIS AFTERNOON. GIVEN ROXANOL X1 SINCE TRANSFERING. ON 4-6L NC, SATS MAINTAINING >95%. FAMILY AT BEDSIDE THROUGHOUT THIS AFTERNOON.
--- NOTE | 2024-06-28 16:36 | NUR ---
SHIFT SUMMARY PT IS A/OX3-4, CONFUSION AT TIMES. NO ACUTE EVENTS THROUGHOUT THIS SHIFT. ROXANOL GIVEN X2 AND ATIVAN GIVEN X1 THIS SHIFT PER MAR. PT SLEEPING IN BED FOR MUCH OF THIS AFTERNOON. PURWICK IN PLACE DRAINING CLEAR, YELLOW URINE. ON 4L NC. PT HAS LITTLE PO INTAKE. FAMILY AT BEDSIDE THROUGHOUT THE DAY.
[2024-06-28] MEDS ORDERED: Sod Phosphate/Sod Biphosphate 132 ML BTL PR ONE (17:40)
--- NOTE | 2024-06-28 17:42 | NUR ---
MET WITH YULIA. PATIENT HAS BEEN COSTIPATED AND APPEARS UNCOMFORTABLE. DISCUSSED CHANGE IN BOWEL CARE REGIMINE. PATIENT REPORTEDLY REFUSED MOM LAST NIGHT. DISCUSSED WITH DAVIS AND HE AGREED TO TAKE IT AT THIS TIME. FOLLOWED UP WITH BEDSIDE RN. PATIENT HAS NOT HAD A BM AT THIS TIME WILL REPET MOM. CHANGED MIRALAX TO TWICE DAILY AND ADDED AN ENEMA IF NECESSARY DISCUSSED WITH PROVIDER. PC WILL CONTINUE TO PROVIDE SUPPORT
[2024-06-28] MEDS ORDERED: Sod Phosphate/Sod Biphosphate 132 ML BTL PR PRN (17:50)
[2024-06-28] MEDS ORDERED: Polyethylene Glycol 3350 17 gm PO SCH (21:00)
--- NOTE | 2024-06-29 08:21 | NUR ---
SUPPORTIVE VISIT: SX MANAGEMENT DTRLINDA IN PC OFFICE THIS MORNING. SHE REVIEWED HOW THE WEEKEND WENT. SHE EXPRESSED GRATITUDE FOR THE CARE DAVIS HAS RCV'D. LINDA REPORTS, DAVIS WAS VERY SEDATE YESTERDAY AFTER RECEIVING ROXANOL AND ATIVAN. PT WAS ABLE TO RELAX AND GET SOME SLEEP. THIS PC RN EDUCATED ON COMFORT MEDICATIONS AND REASSURED HER, PRIMARY RN WILL DECREASE THE AMOUNT OF COMFORT MEDS ADMINISTERED TODAY. DTR'S ADDITIONAL CONCERN IS DAVIS'S LACK OF BM (NO BM RECORDED THIS VISIT.). DAVIS'S ABDOMEN IS VERY DISTENDED. HE REPORTS ABD DISCOMFORT AND FEELING FULL. DENIES N/V. THIS PC RN PROVIDED WARM PRUNE AND APPLE JUICE WITH MELTED BUTTER WITH HOPES OF STIMULATING A BM. PRIMARY RN NOTIFIED. PLAN: START LOW AND GO SLOW ON COMFORT MEDICATIONS. START WITH 5 MG ROXANOL FOR AIR HUNGER/PAIN. START WITH 0.5 MG ATIVAN FOR ANXIETY/AGGITATION. TITRATE DOSING UP NEEDED. PRIMARY RN IN AGREEMENT WITH PLAN. PC TO REMAIN AVAILABLE NEEDED.
[2024-06-29 08:27] VITALS: BP 105/60
[2024-06-29] MEDS ORDERED: Lactulose 20 GM/30 ML UDC PO ONE (12:00)
[2024-06-29] MEDS ORDERED: Bisacodyl 10 MG Supp PR PRN (13:15)
[2024-06-29] MEDS ORDERED: Furosemide 20 MG Tab PO PRN (13:15)
--- NOTE | 2024-06-29 18:34 | NUR ---
SHIFT SUMMARY PT A&OX4. OUTDOOR STUDIES DIRECTOR REPORTED AN INCREASE IN CONFUSION FOR PT. PT ADMITTED DUE TO ACUTE RESPIRATORY FAILURE. PT ON 4L O2 VIA N/C WITH HUMIDIFIER. PT RECEIVED ROXANOL THROUGH SHIFT FOR BREATHING. PT RECIEVED BREATHING TREATMENTS THROUGH SHIFT FROM RT. COMFORT CARE ASSESSMENTS COMPLETE. PT HAS CONDOM CATH INPLACE TO VOID. PT DECLINED REPOSITIONING AT TIMES, BUT WAS ABLE TO REPOSITION SELF. PT WAS REMINDED TO REPOSITION Q2 HR. PT HAS CONSTIPATION. PT RECIEVED BOWEL CARE THROUGH SHIFT AND A SUPPOSITORY. PT MAKES NEEDS KNOWN, CALL LIGHT IN REACH. VISITORS CAME THROUGHOUT SHIFT. PT REPORTED NO PAIN. LASIX WAS AFFECTIVE.
--- NOTE | 2024-06-30 06:49 | NUR ---
SHIFT SUMMARY PT IS A&OX3, ANXIOUS AT TIMES, PREFERS TO BE CALLED BILL. PT REMAINS ON 4L NC WITH HUMIDIFICATION FOR COMFORT. C/O AIR HUNGER, MANAGED WITH 10MG ROXANOL. TOLERATING A REG DIET, GOOD PO INTAKE. VOIDING SMALL AMOUNTS OF CONCENTRATED URINE VIA CONDOM CATH. PT HAD A MEDIUM, LOOSE,AND BLACK BM IN THE BEDPAN. HS BOWEL CARE ADMINISTERED. REPOSITIONED TOLERATED OR REQUESTED. NOOB THIS SHIFT. COMFORT CARE MEASURES. BED IN LOWEST POSITION, CALL LIGHT WITHIN REACH. DROPLET PRECAUTIONS MAINTAINED.
[2024-06-30 07:46] VITALS: BP 120/78
[2024-06-30] MEDS ORDERED: Calcium Carbonate 500 MG Tab Chew PO PRN (10:00)
--- NOTE | 2024-06-30 11:18 | NUR ---
Comfort Care: Pt is not waking, but he continues to grunt with work of breathing. IV lasix given by bedside RN, with no effect yet. Noted mottling of BLE, decision made by Dr. Espinoza not to move this patient. Increased order for Ativan received. Pt's family at the bedside. They are aware of this change from transition to actively dying. Continue to support family, assist as needed with symptom management.
[2024-06-30] MEDS ORDERED: Haloperidol Lactate 2 MG/ML Conc 1ML Dose PO PRN (11:55)
[2024-06-30] MEDS ORDERED: Haloperidol Lactate Inj. 5 MG/ML Injection IV PRN (11:55)
--- NOTE | 2024-06-30 11:56 | NUR ---
Pt remains unresponsive, skin is cool to the touch and pale. Family is aware the patient is actively dying. They are keeping close. Haldol order placed for addition symptom management. Bedside RN aware, awaiting order.
[2024-06-30] MEDS ORDERED: Atropine Sulfate 1% Opth Soln 2ML BTL SL PRN (12:30)
[2024-06-30] MEDS ORDERED: Scopolamine Hydrobromide Patch TOP PRN (12:30)
[2024-06-30] MEDS ORDERED: Morphine Sulfate 10 MG/ML 1MLSYR IV PRN (12:55)
[2024-06-30] MEDS ORDERED: Morphine Sulfate 10 MG/ML 1MLSYR IV ONE (13:00)
--- NOTE | 2024-06-30 14:26 | NUR ---
"Spiritual Care Visit| Comfort Care Pt. is stefany comfort care and mostly not responsive. Several family are at bedside and welcome my visit. Facilitate a life review and consider matters of boy and belief. Listen with empathy and pastoral care. Family display evidence of being supportive and come from a variety of episcopalian traditions. Prayed for Pt. and family. Family all verbalized gratitude for the spiritual care visit."
--- NOTE | 2024-06-30 17:03 | NUR ---
TONicolas NOTE PT TIME OF WAS NOTED AT 1558. NO LUNG SOUNDS OR HEART BEAT NOTED PER 2 RN CHECK. CHARGE NURSE NOTIFIED. DR. ORTIZ NOTIFIED. DR. ORTIZ EVALUATED PT AND CONFIRMED . FAMILY NOTIFIED. POST MORTEM CARE COMPLETED. FAMILY GIVEN EMOTIONAL SUPPORT ON ARRIVAL, OFFERED SHIRT SEWER SERVICES WHICH WERE DECLINED. PT HAD JEWLERY, WATCH, RING, EARING, BRACELET, AND NECKLACE. JEWLERY REMOVED AND GIVEN TO DAUGHTER LINDA ALONG WITH OTHER PERSONAL ITEMS. DAUGHTER STATED PT CAN BE TAKEN INTO CARE OF [facility]. FAMILY DEPARTED. ALEKSANDRA CHARGE NURSE REPORTED PT IS POSSIBLE EYE DONOR, ICE PACK APPLIED TO EYES.
== END 2024-06-30 15:58 | DRG 871 ==
LOC: ER 15:56 → ICUE 18:40 → PCU 18:40 → ICUE 20:15 → PCU 06-17 17:17 → MEDS 06-27 14:35
PROVIDERS: Internal Medicine; Nurse Practitioner Acute Care; Student in an Organized Health Care Education/Training Program; ADMIT Internal Medicine
PROC: 5A09557 Assistance with Respiratory Ventilation, Greater than 96 Consecutive Hours, Continuous Positive Airway Pressure (ICD-10-PCS; 2024-06-15)
PROC: 30233N1 Transfusion of Nonautologous Red Blood Cells into Peripheral Vein, Percutaneous Approach (ICD-10-PCS; principal; 2024-06-19)
PROC: 3E03329 Introduction of Other Anti-infective into Peripheral Vein, Percutaneous Approach (ICD-10-PCS; 2024-06-20)
DX: A41.50 Gram-negative sepsis, unspecified (principal); I50.33 Acute on chronic diastolic (congestive) heart failure; J96.21 Acute and chronic respiratory failure with hypoxia; J96.22 Acute and chronic respiratory failure with hypercapnia; J15.69 Pneumonia due to other Gram-negative bacteria; J44.0 Chronic obstructive pulmonary disease with (acute) lower respiratory infection; J44.1 Chronic obstructive pulmonary disease with (acute) exacerbation; E87.20 Acidosis, unspecified; R65.20 Severe sepsis without septic shock; Z51.5 Encounter for palliative care; Z66 Do not resuscitate; I11.0 Hypertensive heart disease with heart failure; G62.9 Polyneuropathy, unspecified; I50.810 Right heart failure, unspecified; G47.33 Obstructive sleep apnea (adult) (pediatric); K59.00 Constipation, unspecified; R11.0 Nausea; B97.89 Other viral agents as the cause of diseases classified elsewhere; I48.0 Paroxysmal atrial fibrillation; I27.20 Pulmonary hypertension, unspecified; N40.0 Benign prostatic hyperplasia without lower urinary tract symptoms; E78.5 Hyperlipidemia, unspecified; D63.8 Anemia in other chronic diseases classified elsewhere; Z79.01 Long term (current) use of anticoagulants; Z79.899 Other long term (current) drug therapy; Z98.890 Other specified postprocedural states; Z87.891 Personal history of nicotine dependence
CPT/HCPCS: 0202U; 36415; 36430; 71045; 74018; 80048; 80053; 80162; 80202; 82728; 82803; 83540; 83550; 83605; 83735; 83880; 84145; 84484; 85014; 85018; 85025; 85027; 86850; 86900; 86901; 86923; 87040; 87070; 87077; 87186; 87205; 87449; 93005; 93010; 94640; 94644; 94660; 94664; 94760; 94762; 96365; 97110; 97162; 99285-25; A9270; C1751; J0282; J0692; J1630; J1750; J1940; J1956; J2060; J2270; J2405; J2470; J2765; J2919; J3370; J7030; J7040; J7050; J7060; J7512; P9016